=== PATIENT | male | born 1945 | race Caucasian/White ===

== ENCOUNTER 2021-03-06 14:03 | Inpatient (IN) | payer MEDICARE, BC, SELFPAY ==
[2021-03-06 14:35] VITALS: BP 143/78; PULSE 89; RESP 20; TEMP 36.8; O2SAT 97; BMI 34.4
--- NOTE | 2021-03-06 16:11 | CASEMGMT ---
Addendum entered by Allyson Solo 03/06/21 16:20: SW did also review visiting hours w/pt and family as pt wanted to stay. SW explained that this is not possible at this time. KIRIT Zambrano Original Note: Social Work Family here asking to speak to SW. SW spoke w/ and daughters in waiting area. Daughter Kassandra Romero ([phone]) states a nurse told pt to not get up and pt became upset at this. Daughter states pt wants to leave and she asked if pt can leave. Pt has a feeding tube at present as per family, having swallowing issues. He also had a cervical surgery and is having arm pain. SW explained that if pt were to leave we will not be able to set up any kind of home health, and it does not sound like pt would be able to manage at home, both with feeding or ambulation. They also have no supplies for home. states they thought pt was getting transferred to another hospital, not a rehab. SW clarified the different levels of care. They asked if pt could go to the ER to be admitted to the hospital. SW explained pt just left [facility] so they must have felt pt was stable enough to leave the hospital, and may not need to go right back into the hospital. SW encouraged family to encourage pt to stay, so he can get the needed therapies to get stronger. As per daughter pt needs a swallow evaluation too. SW again reiterated if pt goes home he may have a difficult time, and there is no home therapy or supplies for the feeding tube set up, SW asked how this would be managed. Daughter states pt would likely just eat. SW reminded them he is not able to eat as he needs the swallow evaluation, if he eats this may have a negative impact on pt. Family states understanding. SW encouraged family to encourage pt to stay. SW spoke w/physician, she will see pt today. SW let pt and family know. Pt at this time appears calm in bed and is not asking to leave. SW will follow up with a full assessment on Tuesday. KIRIT Zambrano
--- NOTE | 2021-03-06 16:51 | NURSING ---
This nurse walked into room to find pt's transferring reeducated pt and that only staff can transfer pt d/u pt's safety. verbalized understanding.
--- NOTE | 2021-03-06 16:52 | HP.PCM_ITS ---
HPI - General General Date of Admission: 03/06/21 Chief Complaint: Flu-like symptoms, r/o COVID-19 HPI Narrative MITCHELL MOSS, is a 76 YO M with a PMH of CAD, PCI with 3 stents present, ischemic CM (recent TTE showed a 65 % EF), HLD, obesity, gout, HTN and OA who fell on 02/24/21 in his garage and he struck his chin on a toolbox. Injuries sustained include a C7 superior endplate fracture, right C7 laminar fracture, C6-C7 vertebral widening, left vertebral artery occlusion and a deep complex submandibular laceration. He also lost teeth and has dental instability. He underwent emergency surgery on 02/25/21 for anterior cervical C6/7 partial corpectomy, arthrodesis, cadaveric fibular strut graft, posterior cervical C5, 6, T1, T2 instrumentation with posterolateral arthrodesis and reduction of fracture. The dentist recommended extraction of #7 and #8 teeth as an OP. Post operatively he had pharyngeal dysphagia and was made NPO. a MBS showed aspi ration of thin and and nectar consistencies. There was laryngeal penetration with pur?e and honey consistency. A Dobhoff feeding tube was inserted. He was evaluated by PT/OT/ST and transfer to acute rehab was recommended. He was admitted to the acute inpt rehab unit at [facility] on 03/06/21 for 3 hours of therapy daily to restore function/independence at or near his prior level of function. [facility] Medical History (Updated 03/09/21 @ 19:[address] Anitra Harden DO) CAD (coronary artery disease) Gout Hyperlipemia Ischemic cardiomyopathy Home Medications acetaminophen 650 mg PO Q4H PRN 03/06/21 [History Last Taken Unknown] allopurinol 400 mg FEEDING TUBE DAILY 03/06/21 [History Last Taken Unknown] amlodipine 10 mg FEEDING TUBE DAILY 03/06/21 [History Last Taken Unknown] aspirin 81 mg FEEDING TUBE DAILY 03/06/21 [History Last Taken Unknown] cetirizine 10 mg FEEDING TUBE DAILY 03/06/21 [History Last Taken Unknown] cyanocobalamin (vitamin B-12) 1,000 mcg SUBCUT QMONTH 03/06/21 [History Last Taken 02/22/21 08:00] fluvastatin 40 mg FEEDING TUBE DAILY 03/06/21 [History Last Taken Unknown] lactulose 30 ml FEEDING TUBE QHS 03/06/21 [History Last Taken Unknown] melatonin 5 mg FEEDING TUBE QHS 03/06/21 [History Last Taken Unknown] methocarbamol 500 mg FEEDING TUBE Q6H 03/06/21 [History Last Taken Unknown] metoprolol succinate 25 mg PO DAILY 03/06/21 [History Last Taken Unknown] metoprolol tartrate 12.5 mg FEEDING TUBE BID 03/06/21 [History Last Taken Unknown] nitroglycerin 0.4 mg SUBLINGUAL Q5M PRN 03/06/21 [History Last Taken Unknown] oxycodone 5 mg PO Q4H PRN 03/06/21 [History Last Taken Unknown] polyethylene glycol 3350 17 g FEEDING TUBE DAILY 03/06/21 [History Last Taken Unknown] sennosides [senna] 5 ml FEEDING TUBE BID 03/06/21 [History Last Taken Unknown] Allergy/AdvReac Type Severity Reaction Status Date / Time lisinopril Allergy PT UNSURE Verified 03/06/21 15:08 OF REACTION atorvastatin AdvReac Intermediate muscle pain Verified 03/06/21 17:30 Surgical History (Updated 03/09/21 @ 19:[address] Anitra Harden DO) Cervical vertebral fusion Social History household members: spouse housing: house Smoking Status: Never smoker ROS Review of Systems ROS Unobtainable: other Details: He is forgetful but able to answer questions and his family is here to help ; Denies due to encephalopathy, due to endotrache al tube, due to mental condition or due to mental status Constitutional Constitutional: Reports weakness; Denies anorexia, change in weight, chills, fatigue, fever(s) or night sweats Eyes Eyes: Denies blurry vision, change in vision, eye pain or loss of vision ENT HEENT: Reports nasal congestion, neck pain, post nasal drip, sore throat and other Details: he has a dobhoff feeding tube in his nose ; Denies abnormal hearing, dysphagia, headache(s) or hearing loss Cardiovascular Cardiovascular: Denies chest pain, dyspnea on exertion, edema, lightheadedness, orthopnea, palpitations, paroxysmal nocturnal dyspnea or syncope Respiratory/Chest Respiratory/Chest: Reports cough and other Details: the cough is more like clearing his throat - the feeding tube is irritating the throat and making him cough and sneeze ; Denies dyspnea, shortness of breath at rest, shortness of breath with exertion or wheezing Gastrointestinal Gastrointestinal: Denies abdominal pain, constipation, diarrhea, dyspepsia, hematemesis, hematochezia, nausea or vomiting Genitourinary Genitourinary: Denies dysuria, hematuria, nocturia, urinary frequency, urinary hesitancy, urinary incontinence or urinary urgency Musculoskeletal Musculoskeletal: Reports back pain, neck pain and other Details: He is having pain in the R arm...at the shoulder and the elbow. Integumentary Integumentary: Reports dry skin Neurologic Neurologic: Reports confusion; Denies dizziness, focal weakness, headache(s), paresthesias, seizures or tremor(s) Psychiatric Psychiatric: Denies anxiety, depression, homicidal ideation or suicidal ideation Endocrine Endocrinology: Denies change in body appearance, polydipsia or polyuria Hematologic/Lymphatic Hematologic/Lymphatic: Denies easy bleeding, easy bruising or lymphadenopathy Allergic/Immunologic Allergic/Immunologic: Denies rhinitis, eczemia or asthma Vital Signs Vital Signs Vital Signs: 03/06/21 14:35 Temperature 98.2 F Temperature Source Oral Pulse Rate 89 Respiratory Rate 20 H Blood Pressure 143/78 H Blood Pressure Mean 99 Blood Pressure Source Monitor Blood Pressure Position Semi-Fowlers Blood Pressure Location Left Arm Pulse Ox 97 Oxygen Delivery Method Room Air Weight Weight: 254 lb 6.615 oz Body Mass Index (BMI) 34.4 Physical Exam Const alert Constitutional Narrative: He can tell me his name but the the year or the place. General Appearance: cooperative, well developed and other has a Dobhoff feeding tube in his nose Orientation / Consciousness: awake, oriented to person and confused Nutritional Appearance: obese HEENT HEENT Narrative: He has a large laceration of the chin which has been closed with suture. He has a incision in the anterior neck due to cervical spine surgery. There is ecchymosis of the chin and the anterior neck. He also is missing teeth and has a few loose teeth. Nose: nasal discharge mucoid Mouth: dry mucous membranes, mouth trauma and thrush Eyes PERRL, EOMs intact bilaterally, conjunctivae normal and no scleral icterus Neck Neck Narrative: He has a R carotid bruit. Resp normal respiratory effort and no use of accessory muscles Resp Narrative: diminished but CTA. Symmetrical chest movement. No conversational dyspnea. Effort and Inspection: able to speak in complete sentences Cardio regular rate, regular rhythm, S1 normal heart sound, S2 normal heart sound, no murmurs, no rub and no gallops Cardio Narrative: occasional premature beat GI soft to palpation, non-tender and non-distended GI Narrative: Normal bowel sounds, no guarding with palpation Back/Spine normal to inspection Extremity no clubbing, cyanosis or edema Extremity Narrative: Pedal pulses are 2-3/3 bilaterally. He has pain in the RUE with palpation of the biceps tendo at the shoulder......also some pain at the elbow with biceps contraction. No erythema and no increased warmth to touch. No olecranon bursa swelling or fluid Peripheral Pulses: Yes radial pulses present Skin no jaundice Skin Narrative: He has an abrasion of the Left knee with a thick eschar covering it. there is no gely-wound erythema and no increased warmth to touch. General Skin Exam: petechiae Neuro CN's II-XII intact bilaterally, moves all extremities, no focal motor deficits and no sensory deficits noted Neuro Narrative: he is a little confused but pleasant and cooperative. I think the confusion is medication induced. Meningeal Signs: no meningeal signs Psych thought process normal, cooperative, affect normal, denies homicidal ideation and denies suicidal ideation Appearance: grossly normal and appropriate Activity / Motor Behavior: appropriate eye contact; Negative for psychomotor agitation Results Lab / Micro Data Result Diagrams: 03/07/21 07:35 03/07/21 07:35 Assessment & Plan Assessment/Plan (1) Debility: (2) Fall: QUALIFIERS: Encounter type: subsequent encounter Qualified Code(s): W19.XXXD - Unspecified fall, subsequent encounter (3) Cervical vertebral fracture: (4) Cervical vertebral fusion: (5) Laceration: (6) Oropharyngeal dysphagia: (7) Uses feeding tube: (8) Abnormal LFTs: (9) Cognitive dysfunction: (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: (11) Macrocytic anemia: (12) Biceps tendonitis on right: (13) History of PTCA: (14) Obesity: QUALIFIERS: Obesity type: due to excess calories Obesity classification: adult class 1 (BMI 30 - 34.9) Serious obesity comorbidity presence: with serious comorbidity Body mass index: BMI 34.0-34.9 Qualified Code(s): E66.09 - Other obesity due to excess calories; Z68.34 - Body mass index [BMI] 34.0-34.9, adult (15) Ischemic cardiomyopathy: (16) Hyperlipemia: (17) Gout: (18) CAD (coronary artery disease): (19) Right carotid bruit: PLAN: PLAN PT for gait stability OT for ADL's ST for evaluation Analgesics as needed Bowel protocol Fall precautions Assess for Anxiety/Depression GI prophylaxis not necessary at this time DVT prophylaxis with DARRYL ulloa and SCDs until okay with neurosurgery to start pharmacologic DVT prophylaxis Follow up with neurosurgery, dentist, PCP following DC from IP Rehab AM lab including CMP, CBC, Mag and Phos NPO for now. will need another MBS when the swelling has had a chance to decrease. Charges/Coding Visit Charges Inpatient E&M: 72487 Init Hosp L3
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
[2021-03-06] MEDS: Methocarbamol 500 MG Tablet NG ×2 (17:28→23:56)
[2021-03-06 18:58] VITALS: O2SAT 95
[2021-03-06 19:26] VITALS: BP 139/81; PULSE 86; RESP 18; TEMP 36.6; O2SAT 98
[2021-03-06] MEDS: Pivot 1.5 Cal 1,000 ML 45 ML GT (20:01)
[2021-03-06] MEDS: Oxymetazoline 0.05% 1 SPRAY SPRAY.BTL NASAL (20:04)
[2021-03-06] MEDS: Arthritis Pain Compound 60 CLICK TUBE TOPICAL (20:04)
[2021-03-06] MEDS: Clotrimazole 10 MG Troche MUCOUS MEM (20:07)
[2021-03-06] MEDS: MELATONIN 3 MG TABLET NG (20:09)
[2021-03-06 20:12] VITALS: BP 139/81; PULSE 86
[2021-03-06] MEDS: Metoprolol Tartrate 25 MG Tablet 12.5 MG NG (20:12)
[2021-03-06] MEDS: Acetaminophen 650 MG/20 ML UDC 1000 MG NG (20:16)
[2021-03-06] MEDS: oxyCODONE 5 MG Tablet NG (20:56)
[2021-03-06] MEDS: Senna Tablet 1 TABLET NG (20:57)
[2021-03-07] VITALS (7 sets, daily range): BP systolic 130–137; BP diastolic 56–61; PULSE 70–81; RESP 18–20; TEMP 36.8–37; O2SAT 96
[2021-03-07] MEDS: oxyCODONE 5 MG Tablet NG ×4 (01:56→21:16)
[2021-03-07] MEDS: Arthritis Pain Compound 60 CLICK TUBE TOPICAL ×3 (06:47→21:16)
[2021-03-07] MEDS: Methocarbamol 500 MG Tablet NG ×3 (06:48→21:14)
[2021-03-07] MEDS: Acetaminophen 650 MG/20 ML UDC 1000 MG NG ×3 (06:48→21:14)
[2021-03-07] MEDS: Clotrimazole 10 MG Troche MUCOUS MEM ×2 (06:48→12:03)
[2021-03-07] MEDS: Allopurinol 100 MG Tablet 400 MG NG (07:48)
[2021-03-07] MEDS: Aspirin 81 MG TAB.CHEW NG (07:49)
[2021-03-07] MEDS: amLODIPine 10 MG Tablet NG (07:49)
[2021-03-07] MEDS: Metoprolol Tartrate 25 MG Tablet 12.5 MG NG ×2 (07:49→21:15)
[2021-03-07] MEDS: Senna Tablet 1 TABLET NG (07:49)
[2021-03-07] MEDS: Oxymetazoline 0.05% 1 SPRAY SPRAY.BTL NASAL ×2 (07:58→21:16)
[2021-03-07 08:28] LABS: Absolute Lymphocyte Count 1.66 X10^3/uL (0.83-4.51); Absolute Neutrophil Count 5.6 X10^3/uL (2.0-7.7); Basophil# 0.03 X10^3/uL; Basophil% 0.4 % (0-1); Eosinophil# 0.11 X10^3/uL; Eosinophils% 1.4 % (0-5); Hematocrit 26.6 % (40-54); Hemoglobin 8.4 g/dL (13.0-16.5); Lymphocyte # 1.66 X10^3/ul (0.83-4.51); Lymphocyte % 20.6 % (19-41); Mean Corp Hgb Conc 31.6 g/dL (32-36); Mean Corpuscular Hgb 32.3 pg (27.0-32.0); Mean Corpuscular Volume 102.3 fL (80-94); Mean Platelet Vol. 9.6 fl (6.2-12.0); Monocyte% 7.4 % (0-10); NRBC Flagged by Analyzer 0.2 % (0-5); Neutrophil # 5.59 X10^3/uL (2.7-7.7); Neutrophil % 69.2 % (47-70); Platelet Count 254 K/mm3 (150-450); RBC Distribution Width SD 50.4 fl (35.1-43.9); White Blood Count 8.1 K/mm3 (4.4-11.0)
[2021-03-07 08:55] LABS: ALB/GLOB Ratio 0.8 RATIO (0.9-2.4); AST(SGOT) 61 U/L (15-37); Alanine Aminotransfer ALT/SGPT 101 U/L (16-61); Albumin, Serum 2.8 g/dL (3.2-5.0); Alkaline Phosphatase 102 U/L (45-117); Anion Gap 6 (5-15); BUN 25 mg/dL (7-18); BUN/Creat Ratio 32.3 RATIO (10-20); Calcium,Total 8.3 mg/dL (8.5-10.1); Chloride 106 mmol/L (98-107); Creatinine, Serum 0.77 mg/dL (0.70-1.30); EST Glomerular Filtration Rate 103 mL/min (>60); Est Glom Filt Rate - Afr Amer 125 mL/min (>60); Estimated Creatinine Clearance 66.82 ml/min; Globulin 3.5 g/dL (2.2-4.2); Glucose 137 mg/dL (74-106); Magnesium 2.3 mg/dL (1.6-2.6); Potassium 3.8 mmol/L (3.5-5.1); Protein, Total 6.3 g/dL (6.4-8.2); Sodium Level 136 mmol/L (136-145); Uric Acid 4.6 mg/dL (3.5-7.2)
[2021-03-07] MEDS: Pivot 1.5 Cal 1,000 ML 55 ML GT (13:46)
[2021-03-07] MEDS: QUEtiapine 25 MG Tablet PO (17:44)
[2021-03-07] MEDS: MELATONIN 3 MG TABLET NG (21:14)
[2021-03-08] MEDS: oxyCODONE 5 MG Tablet NG ×4 (04:25→21:42)
[2021-03-08] MEDS: Arthritis Pain Compound 60 CLICK TUBE TOPICAL ×3 (05:49→21:35)
[2021-03-08] MEDS: Acetaminophen 650 MG/20 ML UDC 1000 MG NG ×3 (05:49→21:41)
[2021-03-08] MEDS: Methocarbamol 500 MG Tablet NG ×3 (05:49→21:40)
[2021-03-08 08:22] VITALS: BP 133/62; PULSE 78; RESP 18; TEMP 36.7; O2SAT 95
[2021-03-08] MEDS: Polyethylene Glycol 3350 17 GM PACKET NG (08:43)
[2021-03-08] MEDS: amLODIPine 10 MG Tablet NG (08:44)
[2021-03-08] MEDS: Allopurinol 100 MG Tablet 400 MG NG (08:44)
[2021-03-08 08:45] VITALS: PULSE 77
[2021-03-08] MEDS: Oxymetazoline 0.05% 1 SPRAY SPRAY.BTL NASAL ×2 (08:45→21:34)
[2021-03-08] MEDS: Metoprolol Tartrate 25 MG Tablet 12.5 MG NG ×2 (08:45→21:39)
[2021-03-08] MEDS: Aspirin 81 MG TAB.CHEW NG (08:45)
[2021-03-08] MEDS: Senna Tablet 1 TABLET NG ×2 (08:56→21:40)
[2021-03-08] MEDS: Pivot 1.5 Cal 1,000 ML 55 ML GT (08:56)
[2021-03-08] MEDS: Clotrimazole 10 MG Troche MUCOUS MEM (13:22)
[2021-03-08] MEDS: QUEtiapine 25 MG Tablet PO (17:37)
[2021-03-08 19:38] VITALS: BP 114/77; PULSE 78; RESP 16; TEMP 36.6; O2SAT 100
[2021-03-08] MEDS: NYSTATIN 500,000 UNIT/5 ML UDC 500000 UNIT PO ×2 (19:52→21:40)
[2021-03-08 21:39] VITALS: BP 119/77; PULSE 78
[2021-03-08] MEDS: MELATONIN 3 MG TABLET NG (21:40)
[2021-03-09] MEDS: oxyCODONE 5 MG Tablet NG ×4 (01:33→21:29)
[2021-03-09] MEDS: Acetaminophen 650 MG/20 ML UDC 1000 MG NG ×3 (05:30→21:30)
[2021-03-09] MEDS: Arthritis Pain Compound 60 CLICK TUBE TOPICAL ×3 (05:31→21:23)
[2021-03-09] MEDS: Methocarbamol 500 MG Tablet NG ×3 (05:32→21:25)
[2021-03-09 08:38] VITALS: BP 139/61; PULSE 82; RESP 20; TEMP 36.8; O2SAT 96
--- NOTE | 2021-03-09 08:49 | PCM.PN.BLA ---
Progress Note Afebrile VSS-blood pressure is adequately controlled. Maintaining appropriate oxygen saturation on RA Fluid balance yesterday was +195 cc. Last bowel movement was Tuesday - He is still NPO. Will discuss plans for MBS with ST Discussed with nursing - no problems that need addressed. He is sleeping better at night with the addition of Seroquel to his drug regimen. He . Reviewed the PT/OT/ST notes - not yet ready for an MBS. Will continue with feeding tube. Medication list reviewed. He has pain in both shoulders. The arthritic cream and ice help. I suspect he has significant OA in the shoulders. Denies chest pain, shortness of breath, nausea, abdominal pain, lightheadedness. Physical Exam Const alert Constitutional Narrative: He can tell me his name but not the the year or the place. also can not tell me why he is here. General Appearance: cooperative and well developed Orientation / Consciousness: awake, oriented to person and confused Nutritional Appearance: obese Eyes PERRL, conjunctivae normal and no scleral icterus Neck Neck Narrative: He has a R carotid bruit. Resp normal respiratory effort and no use of accessory muscles Resp Narrative: diminished but CTA. Symmetrical chest movement. No conversational dyspnea. Effort and Inspection: able to speak in complete sentences Cardio regular rate, regular rhythm, S1 normal heart sound, S2 normal heart sound, no murmurs, no rub and no gallops Cardio Narrative: occasional premature beat GI soft to palpation, non-tender and non-distended GI Narrative: Normal bowel sounds, no guarding with palpation Back/Spine normal to inspection Extremity no clubbing, cyanosis or edema Skin no jaundice Skin Narrative: He has an abrasion of the Left knee with a thick eschar covering it. there is no gely-wound erythema and no increased warmth to touch. General Skin Exam: petechiae Rashes: no rashes Neuro CN's II-XII intact bilaterally, moves all extremities, no focal motor deficits and no sensory deficits noted Neuro Narrative: he is a little confused but pleasant and cooperative. I think the confusion is medication induced. Nursing reports that he also hallucinates and has poor safety awareness and also that he is impulsive Meningeal Signs: no meningeal signs Psych cooperative, affect normal, denies homicidal ideation and denies suicidal ideation Appearance: grossly normal and appropriate Activity / Motor Behavior: appropriate eye contact; Negative for psychomotor agitation Assessment & Plan Assessment/Plan (1) Debility: (2) Fall: QUALIFIERS: Encounter type: subsequent encounter Qualified Code(s): W19.XXXD - Unspecified fall, subsequent encounter (3) Cervical vertebral fusion: (4) Laceration: (5) Cognitive dysfunction: (6) SunDown syndrome: (7) Abnormal LFTs: (8) Biceps tendonitis on right: (9) Macrocytic anemia: (10) Ischemic cardiomyopathy: (11) Hyperlipemia: (12) CAD (coronary artery disease): (13) Gout: (14) Uses feeding tube: (15) Obesity: QUALIFIERS: Obesity classification: adult class 1 (BMI 30 - 34.9) Obesity type: due to excess calories Serious obesity comorbidity presence: with serious comorbidity Body mass index: BMI 34.0-34.9 Qualified Code(s): E66.09 - Other obesity due to excess calories; Z68.34 - Body mass index [BMI] 34.0-34.9, adult (16) Oropharyngeal dysphagia: PLAN: 1. continue therapy 2. Continue the arthritic cream to the shoulders 3. Continue the Seroquel for sundowning 4. Probable MBS the end of the week. Swelling must decrease further before the MBS is attempted. 5. continue the Dobhoff feedings. Visit Charges Inpatient E&M: 60113 Subs Hosp L2
[2021-03-09 09:16] VITALS: BP 139/61; PULSE 82
[2021-03-09] MEDS: Senna Tablet 1 TABLET NG ×2 (09:16→21:25)
[2021-03-09] MEDS: Polyethylene Glycol 3350 17 GM PACKET NG (09:16)
[2021-03-09] MEDS: NYSTATIN 500,000 UNIT/5 ML UDC 500000 UNIT PO ×4 (09:16→21:25)
[2021-03-09] MEDS: amLODIPine 10 MG Tablet NG (09:16)
[2021-03-09] MEDS: Allopurinol 100 MG Tablet 400 MG NG (09:16)
[2021-03-09] MEDS: Metoprolol Tartrate 25 MG Tablet 12.5 MG NG ×2 (09:16→21:25)
[2021-03-09] MEDS: Aspirin 81 MG TAB.CHEW NG (09:16)
[2021-03-09] MEDS: Oxymetazoline 0.05% 1 SPRAY SPRAY.BTL NASAL ×2 (09:17→21:23)
[2021-03-09] MEDS: Pivot 1.5 Cal 1,000 ML 55 ML GT (13:27)
[2021-03-09] MEDS: QUEtiapine 25 MG Tablet PO (17:36)
[2021-03-09 19:24] VITALS: BP 153/67; PULSE 87; RESP 18; TEMP 37; O2SAT 96
[2021-03-09] MEDS: Lactulose 20 GM/30 ML UDC NG (21:24)
[2021-03-09 21:25] VITALS: PULSE 85
[2021-03-09] MEDS: MELATONIN 3 MG TABLET NG (21:25)
[2021-03-09 22:00] VITALS: PULSE 85; RESP 16; O2SAT 96
[2021-03-10] MEDS: Arthritis Pain Compound 60 CLICK TUBE TOPICAL ×3 (05:38→22:01)
[2021-03-10] MEDS: Methocarbamol 500 MG Tablet NG ×3 (05:38→21:54)
[2021-03-10] MEDS: Acetaminophen 650 MG/20 ML UDC 1000 MG NG ×2 (05:39→21:59)
[2021-03-10] MEDS: oxyCODONE 5 MG Tablet NG ×4 (05:40→22:03)
[2021-03-10] MEDS: Pivot 1.5 Cal 1,000 ML 55 ML GT (06:30)
[2021-03-10 07:30] VITALS: BP 136/52; PULSE 86; RESP 18; TEMP 36.7; O2SAT 95
[2021-03-10 10:59] VITALS: BP 136/52; PULSE 86
[2021-03-10] MEDS: Allopurinol 100 MG Tablet 400 MG NG (10:59)
[2021-03-10] MEDS: amLODIPine 10 MG Tablet NG (10:59)
[2021-03-10] MEDS: Aspirin 81 MG TAB.CHEW NG (10:59)
[2021-03-10] MEDS: NYSTATIN 500,000 UNIT/5 ML UDC 500000 UNIT PO ×4 (10:59→22:00)
[2021-03-10] MEDS: Metoprolol Tartrate 25 MG Tablet 12.5 MG NG ×2 (10:59→22:02)
[2021-03-10] MEDS: Oxymetazoline 0.05% 1 SPRAY SPRAY.BTL NASAL ×2 (11:12→22:01)
[2021-03-10] MEDS: QUEtiapine 25 MG Tablet PO (17:42)
[2021-03-10 18:55] VITALS: BP 112/50; PULSE 82; RESP 18; TEMP 36.7; O2SAT 97
[2021-03-10 22:00] VITALS: PULSE 82; RESP 16; O2SAT 96
[2021-03-10] MEDS: Senna Tablet 1 TABLET NG (22:00)
[2021-03-10] MEDS: MELATONIN 3 MG TABLET NG (22:00)
[2021-03-10] MEDS: Lactulose 20 GM/30 ML UDC NG (22:01)
[2021-03-10 22:02] VITALS: PULSE 86
[2021-03-11] MEDS: Pivot 1.5 Cal 1,000 ML 55 ML GT ×2 (00:31→22:29)
[2021-03-11] MEDS: oxyCODONE 5 MG Tablet NG ×2 (05:40→10:08)
[2021-03-11] MEDS: Acetaminophen 650 MG/20 ML UDC 1000 MG NG ×3 (05:41→22:09)
[2021-03-11] MEDS: Methocarbamol 500 MG Tablet NG ×3 (05:41→22:12)
[2021-03-11] MEDS: Arthritis Pain Compound 60 CLICK TUBE TOPICAL ×3 (05:42→22:09)
[2021-03-11 07:42] VITALS: BP 159/86; PULSE 82; RESP 16; TEMP 37.4; O2SAT 94
[2021-03-11] MEDS: Oxymetazoline 0.05% 1 SPRAY SPRAY.BTL NASAL ×2 (10:06→22:08)
[2021-03-11] MEDS: Aspirin 81 MG TAB.CHEW NG (10:06)
[2021-03-11 10:07] VITALS: PULSE 82
[2021-03-11] MEDS: Allopurinol 100 MG Tablet 400 MG NG (10:07)
[2021-03-11] MEDS: amLODIPine 10 MG Tablet NG (10:07)
[2021-03-11] MEDS: Metoprolol Tartrate 25 MG Tablet 12.5 MG NG ×2 (10:07→22:12)
[2021-03-11] MEDS: NYSTATIN 500,000 UNIT/5 ML UDC 500000 UNIT PO ×3 (10:07→20:32)
--- NOTE | 2021-03-11 10:07 | PCM.PN.BLA ---
Progress Note Avinash was seen on team rounds today. His daughter Kassandra was present in the room for rounds. Afebrile VSS Maintaining appropriate oxygen saturation on RA Remains NPO with a corpak Discussed with nursing - Both therapy and nursing report he is having severe shoulder pain. Reviewed the PT/OT/ST notes Medication list reviewed. He is having a lot of pain in the posterior neck and shoulders when sitting up for a prolonged period of time and when doing PT. He has trapezius spasm BL and the pain is radiating down the R arm. He describes the pain in the R arm as aching. He denies CP, SOB, N/V, abd pain, lightheadedness. Physical Exam Const alert and oriented x3 Constitutional Narrative: He appears to be is significant pain and is uncomfortable. General Appearance: cooperative Resp clear to auscultation bilaterally Cardio regular rate, regular rhythm and no gallops GI soft to palpation, non-tender and non-distended GI Narrative: normal bowel sounds Extremity no calf tenderness and no pedal edema Skin General Skin Exam: no breakdown Rashes: no rashes Assessment & Plan Assessment/Plan (1) Cervical vertebral fracture: (2) Oropharyngeal dysphagia: (3) Debility: (4) Cervical vertebral fusion: (5) Biceps tendonitis on right: PLAN: Increase the Muscle relaxer to 4 X's a day. Add Fentanyl 12 mcg patch for continuous pain relief and keep the Oxycodone for breakthrough pain. Soft collar when he is out of bed to support the neck/head. re-evaluate in the AM for pain control MBS scheduled for tomorrow.
[2021-03-11 19:53] VITALS: BP 112/45; PULSE 79; RESP 18; TEMP 36.9; O2SAT 95
[2021-03-11] MEDS: QUEtiapine 25 MG Tablet PO (20:33)
[2021-03-11] MEDS: Lactulose 20 GM/30 ML UDC NG (22:11)
[2021-03-11 22:12] VITALS: BP 112/45; PULSE 79
[2021-03-11] MEDS: MELATONIN 3 MG TABLET NG (22:12)
[2021-03-12] MEDS: Acetaminophen 650 MG/20 ML UDC 1000 MG NG ×2 (05:05→23:56)
[2021-03-12] MEDS: Arthritis Pain Compound 60 CLICK TUBE TOPICAL ×3 (05:06→23:59)
[2021-03-12 07:25] VITALS: BP 104/46; PULSE 78; RESP 18; TEMP 37.4; O2SAT 99
[2021-03-12] MEDS: Oxymetazoline 0.05% 1 SPRAY SPRAY.BTL NASAL ×2 (10:14→23:59)
[2021-03-12 10:16] VITALS: PULSE 78
[2021-03-12] MEDS: Aspirin 81 MG TAB.CHEW NG (10:16)
[2021-03-12] MEDS: Metoprolol Tartrate 25 MG Tablet 12.5 MG NG ×2 (10:16→23:58)
[2021-03-12] MEDS: Methocarbamol 500 MG Tablet NG ×3 (10:17→23:58)
[2021-03-12] MEDS: Allopurinol 100 MG Tablet 400 MG NG (10:17)
[2021-03-12] MEDS: NYSTATIN 500,000 UNIT/5 ML UDC 500000 UNIT PO ×3 (10:17→23:58)
[2021-03-12] MEDS: amLODIPine 10 MG Tablet NG (10:17)
[2021-03-12] MEDS: oxyCODONE 5 MG Tablet NG (10:22)
--- NOTE | 2021-03-12 14:13 | CASEMGMT ---
Social Work Team meeting held today with pt and pt dgt Nicole present. Pt is receiving PT/OT/ST and progressing with therapy. MBS scheduled for later today and pt hopeful that tube feeding will then be stopped. Pt will need to remain in RU for continued therapy even after d/c of artificial nutrition. Pt lives at home with his and plans to return home at time of discharge. Pt with a recent fall and scheduled for surgery tomorrow. Pt dgt assuring pt that children are caring for pt . Pt is here under Medicare benefit and SW explained medicare has approved 28 days with discharge date of 04/03. Will continue with treatment plan on Rehab unit and reteam next week. PRASANNA Grey
--- NOTE | 2021-03-12 16:16 | SP.MBSS_ITS ---
Modified Barium Swallow - Patient Information Study Date: 03/12/21 Study Time: 14:30 Direct Billable Minutes: 150 Total Minutes procedure & reportin Diagnosis: oropharyngeal dysphagia Referring Physician: Anitra Harden Reason for Referral: Objective reassessment of swallow function under fluoroscopy prior to diet advancement recommended following MBSS 03/02/21 Medical History: Patient is a 76 YO male w/ a past medical history significant for CAD, PCI with 3 stents present, ischemic CM (recent TTE showed a 65 % EF), HLD, obesity, gout, HTN and OA who fell on 02/24/21 in his garage and he struck his chin on a toolbox. Injuries sustained include a C7 superior endplate fracture, right C7 laminar fracture, C6-C7 vertebral widening, left vertebral artery occlusion and a deep complex submandibular laceration. He also lost teeth and has dental instability. He underwent emergency surgery on 02/25/21 for anterior cervical C6/7 partial corpectomy, arthrodesis, cadaveric fibular strut graft, posterior cervical C5, 6, T1, T2 instrumentation with posterolateral arthrodesis and reduction of fracture. The dentist recommended extraction of #7 and #8 teeth as an OP. Post operatively he had pharyngeal dysphagia, underwent a MBSS, was subsequently made NPO and a Dobhoff feeding tube was inserted. Current Diet Ordered: NPO w/ dobhoff feeding tube Dentition: Natural Teeth, Missing Teeth Mental Status: WNL Comment: Previous Modified Barium Swallow Studies: MBSS on 03/02/21 at [facility] -Moderate pharyngeal dysphagia secondary to Anterior cervical C6/7 partial corpectomy, arthrodesis, cadaveric fibular strut graft - findings were as follows: Pt. demonstrate adequate oral phase swallow Pt. moderate pharyngeal dysphagia exhibited by delayed initiation of pharyngeal swallow, decrease laryngeal elevation/anterior shift with limited epiglottic inversion further impacted by prevertebral edema. Penetration of thin liquids to TVF prior to initiation of pharyngeal swallow, however on repeat swallow SILENT aspiration to the inferior aspect of the TVF due to spillage over the interarytenoids. Mildly thick liquids resulted in deep penetration to the level of the TVF with post swallow residue within the valleculae and piriform space. Again spillage over the interarytenoids occurred which resulted in aspiration. Increase residue with moderately thick liquids with eventual silent penetration. Pt. cued to cough and cleared both aspiration and penetration of all liquids. Increased residue with puree, pt. utilized multiple swallows to aid in clearance, however post swallow residue remained within the valleculae and piriform space. This again flowed over the interarytenoid space into the laryngeal vestibule. Pt. at high risk for aspiration at this time mainly due to prevertebral edema, therefore NPO with limited ice chips was recommended. good, to achieve stated therapy goals. - Penetration-Aspiration Scale Penetration-Aspiration Scale: OBJECTIVE ASSESSMENT OF SWALLOW FUNCTION (QUANTITATIVE ? PER TRIAL): PENETRATION / ASPIRATION SCALE (WILLIAM): 1 = does not enter airway 2 = enters airway/above vocal folds/ejected 3 = enters airway/above vocal folds/not ejected 4 = enters airway/contacts vocal folds/ejected 5 = enters airway/contacts vocal folds/not ejected 6 = enters airway/below vocal folds/ejected 7 = enters airway/below vocal folds/not ejected despite effort 8 = enters airway/below vocal folds/no effort - Penetration-Aspiration Scale Score Thin Liquid via teaspoon Result: 8= enters airway/below vocal folds/no effort Thin Liquid via teaspoon Trial 2 Result: 3= enters airways/above vocal folds/not ejected [place] Thick Liquid via teaspoon Result: 1= does not enter airway - Pharyngeal residue from the initial bolus w/ additional swallow: 3= enters airway/above vocal folds/not ejected [place] Thick Liquid via teaspoon Trial 2 Result: 1= does not enter airway [place] Thick Liquid via small single sip from cup Result: 5= enters airways/contacts vocal folds/not ejected [place] Thick Liquid via teaspoon Trial 3 Result: 5= enters airways/contacts vocal folds/not ejected Honey Thick Liquid via teaspoon Result: 1= does not enter airway Honey Thick Liquid via teaspoon Trial 2 Result: 1= does not enter airway - Pharyngeal residue from the initial bolus w/ additional swallow: 3= enters airway/above vocal folds/not ejected Honey Thick Liquid via teaspoon Trial 3 Result: 1= does not enter airway - Pharyngeal residue from the initial bolus w/ additional swallow: 2= enters airway/above vocal folds/ejected Pudding via teaspoon Result: 1= does not enter airway [place] Thick Liquid via teaspoon Trial 4 Result: 5= enters airways/contacts vocal folds/not ejected Honey Thick Liquid via teaspoon Trial 4 Result: 1= does not enter airway - Oral Phase Labial Seal: No Labial Escape Tongue Control During Bolus Hold: Cohesive bolus between tongue to palatal seal Bolus Preparation/Mastication: Timely and efficient chewing and mashing Bolus Transport/Lingual Motion: Repetitive/disorganized tongue motion Oral Residue: Trace residue lining oral structures - Pharyngeal Phase Initiation of Pharyngeal Swallow: Bolus head in valleculae Soft Palate Elevation: No bolus between soft palate and pharyngeal wall Laryngeal Elevation: Min superior movement thyroid cart/min apprx aryte cart- epig petiole Anterior Hyoid Excursion: Partial anterior movement Epiglottic Movement: Partial inversion Laryngeal Vestibule Closure at Height of Swallow: Incomplete; narrow column of air/contrast in laryngeal vestibule Pharyngeal Stripping Wave: Absent Pharyngoesophageal Segment Opening: Parital distension and partial duration; parital obstruction of flow Tongue Base Retraction: Narrow column of contrast between tongue base & post. pharyngeal wall Pharyngeal Residue: Majority of contrast within or on pharyngeal structures - Esophageal Phase Esophageal Clearance: Esophageal retention - Treatment Strategies Effects of treatment strategies attemped:: Multiple Swallows = somewhat effective Effortful Swallow = somewhat effective - Diagnosis/Impression Diagnosis: moderate oropharyngeal dysphagia (R13.12) Impression: Swallow function is marked by poor hyolaryngeal excursion contributing to incomplete epiglottic inversion and poor PES distention/duration. Dobhoff feeding tube was present for initial thin liquid trial by teaspoon which prevented epiglottic inversion and reduced airway closure w/ resultant in pene tration/aspiration. Weak throat clearing response to aspirate was noted, but not sufficient to expel penetrated/aspirated contrast. Dobhoff feeding tube was removed per physician order w/ improved epiglottic inversion evident in subsequent trials, although still incomplete d/t pharyngeal edema s/p cervical surgery. Epiglottic inversion improved d/t the added weight w/ increased bolus viscosities. Significant pharyngal residue retention d/t incomplete epiglottic inversion and absent pharyngeal stripping wave/contraction. Multiple and effortful swallows were only somewhat effective to reduce pharyngeal residue, but resulted in increased laryngeal vestibule penetration of residue w/ subsequent swallows. - Recommendations Diet: NPO - Consideration for an alternative means of nutrition/hydration/medication is recommended. Would discourage reinsertion of dobhoff feeding tube d/t significant negative impact on swallow function and potential benefit from dysphagia intervention. Recommend Repeat Modified Barium Swallow: Yes - 2-4 weeks Need for Skilled Speech Therapy Services: Yes Comment: Recommend moderately thick liquid trials under direct ST supervision only w/ liquid presentation via teaspoon. Would benefit from implementation of the Márquez Free Water Protocol to facilitate increased swallowing opportunities. Must wait 60 minutes after PO trials w/ ST before free water intake is allowed. Initiate oropharyngeal strengthening exercises to target hyolaryngeal excursion, epiglottic inversion, PES opening and pharyngeal contraction. Education Completed: 1. Described result of evaluation., 2. Pt understands evaluation & agrees with goals and treatment plan. Comment: Images were reviewed and results/recommendations were discussed with the patient and referring physician immediately following MBS completion. The patient verbalized understanding and agreement with all recommendations and education provided. - Status Active ST Patient: Active - Contact Information [facility] Speech Therapy:: Vanessa Anne M.A., CCC-INTERCHANGE AGENT [facility] [address] [place] [address] [phone] [email or web address]
[2021-03-12] MEDS: Gabapentin 100 MG Capsule PO (17:32)
--- NOTE | 2021-03-12 18:14 | PCM.PN.BLA ---
Progress Note Afebrile VSS maintaining appropriate oxygen saturation on RA remains NPO He continues to complain of severe right shoulder pain. The pain is there even when he is lying in bed. He describes an ache in the right arm that extends from the shoulder down to his fingers. He tells me that the nurses have not been putting the cream on but, they have and this is documented. We added a Fentanyl patch yesterday and increased the Robaxin to 4 X's a day yet the pain is even worse today. He tells me that the cervical collar makes it worse. He had a MBS today and did not do well even after the Corpak was removed. I discussed the results with the ST and she sees swelling of the epiglottis and post pharynx and is afraid that if he is started on even honey thick liquids he will aspirate. He has not been swallowing for the past couple weeks and the muscles in the posterior pharynx are weak. Physical Exam Extremity Extremity Narrative: He has no pain with palpation of the biceps tendon now....this resolved with the arthritis cream. He has some localized spasm in the R trapezius muscle which is painful to palpate. Rotation of the neck does not increase the pain. He has no pain with palpation around the incision in the upper thoracic area. there is bruising of this area but, no erythema and no increased warmth to touch. there is no dehiscence and no DC. He has full ROM of the RUE. There is no swelling of the RUE. He had severe pain even after Oxycodone. Skin Skin Narrative: He has picked the eschar off the chin and fortunately it is not bleeding. Assessment & Plan Assessment/Plan (1) Debility: PLAN: Continue therapy. (2) Radicular pain in right arm: PLAN: I suspect the pain in the R arm is radicular. Exam is unremarkable and narcotics and muscle relaxers are not really helping. Will try Gabapentin 100 mg BID. If this is effective will start to taper narcotics and muscle relaxers. (3) Cervical vertebral fracture: (4) Cervical vertebral fusion: PLAN: Incisions are intact and have no sign of infection (5) Oropharyngeal dysphagia: PLAN: Due to swelling but, also due to muscle weakness from not swallowing for the past few weeks. Needs continued ST. The Corpak makes it very difficult to do the exercises to strengthen the swallowing muscles and I think it is irritating the posterior pharynx and contributing to sore throat, hoarseness and swelling. ST wants to defer another MBS for a a month before trying again. I discussed a PEG with the pt, his and his dtr Kassandra who is the POA. they are in agreement with placing a PEG. Dr. Winter has been consulted and will see the pt tomorrow. Will give his meds in thickened applesauce tonight, start an IV and keep NPO. (6) Cognitive dysfunction: PLAN: I suspect this is due to medications and will resolve when the meds are tapered. He has been sleeping well at night and has not been agitated so will decrease the Seroquel to 12.5 mg Q HS. (7) Biceps tendonitis on right: PLAN: this has resolved with ice and arthritic cream. Visit Charges Inpatient E&M: 28149 Subs Hosp L2
[2021-03-12 20:14] VITALS: BP 100/56; PULSE 89; RESP 16; TEMP 36.8; O2SAT 98
[2021-03-12] MEDS: QUEtiapine 25 MG Tablet 12.5 MG PO (20:22)
[2021-03-12 23:58] VITALS: BP 100/56; PULSE 89
[2021-03-12] MEDS: MELATONIN 3 MG TABLET NG (23:58)
[2021-03-12] MEDS: Lactulose 20 GM/30 ML UDC NG (23:59)
[2021-03-13] VITALS (12 sets, daily range): BP systolic 116–136; BP diastolic 45–66; PULSE 73–82; RESP 12–18; TEMP 36.3–36.9; O2SAT 92–99
[2021-03-13] MEDS: Arthritis Pain Compound 60 CLICK TUBE TOPICAL ×3 (05:48→21:32)
[2021-03-13] MEDS: Acetaminophen 650 MG Suppository RC ×2 (06:11→21:34)
[2021-03-13] MEDS: Gabapentin 100 MG Capsule PO ×2 (08:15→17:27)
[2021-03-13] MEDS: Oxymetazoline 0.05% 1 SPRAY SPRAY.BTL NASAL ×2 (08:15→21:31)
[2021-03-13] MEDS: Senna Tablet 1 TABLET NG ×2 (08:15→21:34)
[2021-03-13] MEDS: Methocarbamol 500 MG Tablet NG ×3 (08:16→21:34)
[2021-03-13] MEDS: Metoprolol Tartrate 25 MG Tablet 12.5 MG NG ×2 (08:16→21:32)
[2021-03-13] MEDS: Allopurinol 100 MG Tablet 400 MG NG (08:16)
[2021-03-13] MEDS: amLODIPine 10 MG Tablet NG (08:16)
[2021-03-13] MEDS: NYSTATIN 500,000 UNIT/5 ML UDC 500000 UNIT PO ×4 (08:16→21:34)
--- NOTE | 2021-03-13 12:24 | SUR.PREOP ---
pt down to ac from rehab. oriented to plan of care milton coleman. ivf hung. consent signed call lt with in reach
--- NOTE | 2021-03-13 12:42 | EX.PCM.CON.S ---
Assessment & Plan Assessment/Plan (1) Uses feeding tube: PLAN: My plan is to place a feeding tube. We would do this via percutaneous endoscopic gastrostomy tube placement in endoscopy.I have discussed the above with the patient. I have offered the patient esophagogastroduodenoscopy for evaluation. I have explained the risks/benefits of the procedure and described the procedure. I have discussed the risks with the patient, including but not limited to: infection, bleeding, perforation of the GI tract requiring emergency surgery, inability to complete the procedure, injury to any internal organs, complications of anesthesia, etc. - the patient understands and agrees to proceed. I have answered all the patient's questions to the patient's satisfaction and the patient has no further questions. The patient has been given instructions for the colon cleansing preparation. (2) Oropharyngeal dysphagia: (3) Cervical vertebral fracture: QUALIFIERS: Encounter type: sequela HPI Consult Data Date of Consult: 03/13/21 HPI Narrative HPI Narrative: MITCHELL MOSS, is a 76 YO M with a PMH of CAD, PCI with 3 stents present, ischemic CM (recent TTE showed a 65 % EF), HLD, obesity, gout, HTN and OA who fell on 02/24/21 in his garage and he struck his chin on a toolbox. Injuries sustained include a C7 superior endplate fracture, right C7 laminar fracture, C6-C7 vertebral widening, left vertebral artery occlusion and a deep complex submandibular laceration. He also lost teeth and has dental instability. He underwent emergency surgery on 02/25/21 for anterior cervical C6/7 partial corpectomy, arthrodesis, cadaveric fibular strut graft, posterior cervical C5, 6, T1, T2 instrumentation with posterolateral arthrodesis and reduction of fracture. The dentist recommended extraction of #7 and #8 teeth as an OP. Post operatively he had pharyngeal dysphagia and was made NPO. a MBS showed aspiration of thin and and nectar consistencies. There was laryngeal penetration with pur?e and honey consistency. A Dobhoff feeding tube was inserted. He was evaluated by PT/OT/ST and transfer to acute rehab was recommended. He was admitted to the acute inpt rehab unit at [facility] on 03/06/21 for 3 hours of therapy daily to restore function/independence at or near his prior level of function. He has been having silent aspiration and will need to have a PEG tube. [facility] Medical History CAD (coronary artery disease) Gout Hyperlipemia Ischemic cardiomyopathy Home Medications acetaminophen 650 mg PO Q4H PRN 03/06/21 [History Last Taken Unknown] allopurinol 400 mg FEEDING TUBE DAILY 03/06/21 [History Last Taken Unknown] amlodipine 10 mg FEEDING TUBE DAILY 03/06/21 [History Last Taken Unknown] aspirin 81 mg FEEDING TUBE DAILY 03/06/21 [History Last Taken Unknown] cetirizine 10 mg FEEDING TUBE DAILY 03/06/21 [History Last Taken Unknown] cyanocobalamin (vitamin B-12) 1,000 mcg SUBCUT QMONTH 03/06/21 [History Last Taken 02/22/21 08:00] fluvastatin 40 mg FEEDING TUBE DAILY 03/06/21 [History Last Taken Unknown] lactulose 30 ml FEEDING TUBE QHS 03/06/21 [History Last Taken Unknown] melatonin 5 mg FEEDING TUBE QHS 03/06/21 [History Last Taken Unknown] methocarbamol 500 mg FEEDING TUBE Q6H 03/06/21 [History Last Taken Unknown] metoprolol succinate 25 mg PO DAILY 03/06/21 [History Last Taken Unknown] metoprolol tartrate 12.5 mg FEEDING TUBE BID 03/06/21 [History Last Taken Unknown] nitroglycerin 0.4 mg SUBLINGUAL Q5M PRN 03/06/21 [History Last Taken Unknown] oxycodone 5 mg PO Q4H PRN 03/06/21 [History Last Taken Unknown] polyethylene glycol 3350 17 g FEEDING TUBE DAILY 03/06/21 [History Last Taken Unknown] sennosides [senna] 5 ml FEEDING TUBE BID 03/06/21 [History Last Taken Unknown] Allergy/AdvReac Type Severity Reaction Status Date / Time lisinopril Allergy PT UNSURE Verified 03/06/21 15:08 OF REACTION atorvastatin AdvReac Intermediate muscle pain Verified 03/06/21 17:30 Surgical History Cervical vertebral fusion Social History household members: spouse housing: house Smoking Status: Never smoker ROS Cardiovascular Cardiovascular: Denies chest pain Respiratory/Chest Respiratory/Chest: Denies cough or dyspnea Gastrointestinal Gastrointestinal: Denies abdominal pain or bloating Physical Exam Const alert and oriented x3 General Appearance: cooperative HEENT normocephalic and head/scalp atraumatic Eyes PERRL and EOMs intact bilaterally Neck Neck Narrative: Cervical collar is in place Resp normal respiratory effort and clear to auscultation bilaterally Cardio Rate: regular rate Rhythm: regular rhythm GI soft to palpation, non-tender and non-distended Lab / Micro Data Result Diagrams: 03/07/21 07:35 03/07/21 07:35
[2021-03-13] MEDS: Cefazolin 2 GM in 0.9% Normal Saline 100 ML IV (12:44)
--- NOTE | 2021-03-13 13:04 | OP.EGD_ITS ---
Patient Name: Sp Levin Procedure Date: 03/13/2021 11:47 AM Date of : 1945 Age: 76 Procedure: Upper GI endoscopy Indications: Oropharyngeal phase dysphagia Providers: Rafi Winter MD Medicines: See the Anesthesia note for documentation of the administered medications Patient Profile: This is a 76 year old male. Refer to note in patient chart for documentation of history and physical. Complications: No immediate complications. Estimated blood loss: Minimal. Procedure: Pre-Anesthesia Assessment: - Prior to the procedure, a History and Physical was performed, and patient medications and allergies were reviewed. The patient's tolerance of previous anesthesia was also reviewed. The risks and benefits of the procedure and the sedation options and risks were discussed with the patient. All questions were answered, and informed consent was obtained. Prior Anticoagulants: The patient has taken no previous anticoagulant or antiplatelet agents. ASA Grade Assessment: III - A patient with severe systemic disease. After reviewing the risks and benefits, the patient was deemed in satisfactory condition to undergo the procedure. After obtaining informed consent, the endoscope was passed under direct vision. Throughout the procedure, the patient's blood pressure, pulse, and oxygen saturations were monitored continuously. The gastroscope was introduced through the mouth, and advanced to the duodenal bulb. The upper GI endoscopy was accomplished without difficulty. The patient tolerated the procedure well. Scope In: 12:50:37 PM Scope Out: 1:57:14 PM Total Procedure Duration Time 1 hour 6 minutes 37 seconds Findings: The examined esophagus was normal. The entire examined stomach was normal. Placement of an externally removable PEG with no T-fasteners was successfully completed. The external bumper was at the 5.5 cm marking on the tube. Estimated blood loss was minimal. Estimated blood loss was minimal. The duodenal bulb was normal. No biopsies or other specimens were collected for this exam. Impression: - Normal esophagus. - Normal stomach. - Normal duodenal bulb. No specimens collected. - An externally removable PEG placement was successfully completed. Recommendation: - [facility]. - Resume previous diet. - Continue present medications. - Please follow the post-PEG recommendations including: Nutrition consult for formula and volume, advance food and medications per primary care provider, NPO x4 hrs then water today, antibiotic ointment to site, check site for bleeding q 4 hrs, clean site with soap and water daily and dry thoroughly and clean site daily with half-strength hydrogen peroxide for three days, then soap and water daily. Procedure Code(s): --- Professional --- 30747, Esophagogastroduodenoscopy, flexible, transoral; with directed placement of percutaneous gastrostomy tube Diagnosis Code(s): --- Professional --- R13.12, Dysphagia, oropharyngeal phase CPT copyright 2017 [employer]. All rights reserved. The codes documented in this report are preliminary and upon pot tender review may be revised to meet current compliance requirements. MD Rafi Camarillo MD 03/13/2021 1:04:01 PM This report has been signed electronically. Number of Addenda: 0 Note Initiated On: 03/13/2021 11:47 AM
--- NOTE | 2021-03-13 13:05 | OP.CCLET_ITS ---
03/13/2021 Manan Jacome [address] [id number] Re : Upper GI endoscopy procedure for Sp Levin Dear Dr. Jacome This procedure was performed on Saturday, March 13, 2021. My impressions and recommendations are as follows: Impressions : - Normal esophagus. - Normal stomach. - Normal duodenal bulb. No specimens collected. - An externally removable PEG placement was successfully completed. Recommendations : - Return patient to [facility] care. - Resume previous diet. - Continue present medications. - Please follow the post-PEG recommendations including: Nutrition consult for formula and volume, advance food and medications per primary care provider, NPO x4 hrs then water today, antibiotic ointment to site, check site for bleeding q 4 hrs, clean site with soap and water daily and dry thoroughly and clean site daily with half-strength hydrogen peroxide for three days, then soap and water daily. My findings are described in the full procedure note, which is enclosed. If I can be of further assistance, please feel free to contact me at Doctor phone number(s): , Fax: [phone], Work: . Sincerely, MD Rafi Camarillo MD 03/13/2021 1:04:01 PM This report has been signed electronically.
--- NOTE | 2021-03-13 15:17 | NURSING ---
Daughter aware of patient's departure and return post peg placement and patient is doing well. NO complaints voiced.
[2021-03-13] MEDS: QUEtiapine 25 MG Tablet 12.5 MG PO (17:35)
[2021-03-13] MEDS: MELATONIN 3 MG TABLET NG (21:33)
[2021-03-13] MEDS: oxyCODONE 5 MG Tablet NG (21:35)
[2021-03-14] MEDS: oxyCODONE 5 MG Tablet NG ×2 (04:07→21:33)
[2021-03-14] MEDS: Acetaminophen 650 MG Suppository RC (04:12)
[2021-03-14] MEDS: Arthritis Pain Compound 60 CLICK TUBE TOPICAL ×3 (06:41→21:37)
[2021-03-14 08:32] VITALS: BP 123/61; PULSE 69; RESP 18; TEMP 36.9; O2SAT 92
[2021-03-14 09:05] VITALS: PULSE 70
[2021-03-14] MEDS: Gabapentin 100 MG Capsule PO ×2 (09:05→17:51)
[2021-03-14] MEDS: Senna Tablet 1 TABLET NG ×2 (09:05→21:35)
[2021-03-14] MEDS: Metoprolol Tartrate 25 MG Tablet 12.5 MG NG ×2 (09:05→21:36)
[2021-03-14] MEDS: Aspirin 81 MG TAB.CHEW NG (09:05)
[2021-03-14] MEDS: Oxymetazoline 0.05% 1 SPRAY SPRAY.BTL NASAL ×2 (09:06→21:38)
[2021-03-14] MEDS: amLODIPine 10 MG Tablet NG (09:07)
[2021-03-14] MEDS: NYSTATIN 500,000 UNIT/5 ML UDC 500000 UNIT PO ×4 (09:07→21:36)
[2021-03-14] MEDS: Polyethylene Glycol 3350 17 GM PACKET NG (09:07)
[2021-03-14] MEDS: Allopurinol 100 MG Tablet 400 MG NG (09:08)
[2021-03-14] MEDS: Methocarbamol 500 MG Tablet NG ×4 (09:08→21:35)
[2021-03-14] MEDS: Pivot 1.5 Cal 1,000 ML BOTTLE 260 ML GT ×4 (09:13→21:47)
[2021-03-14] MEDS: Acetaminophen 650 MG/20 ML UDC 1000 MG NG ×2 (15:43→21:34)
[2021-03-14] MEDS: QUEtiapine 25 MG Tablet 12.5 MG PO (17:52)
[2021-03-14 19:22] VITALS: BP 141/62; PULSE 78; RESP 16; TEMP 36.2; O2SAT 96
[2021-03-14 21:36] VITALS: BP 141/62; PULSE 78
[2021-03-14] MEDS: MELATONIN 3 MG TABLET NG (21:36)
[2021-03-14] MEDS: Lactulose 20 GM/30 ML UDC NG (21:37)
[2021-03-15] MEDS: oxyCODONE 5 MG Tablet NG (05:13)
[2021-03-15] MEDS: Acetaminophen 650 MG/20 ML UDC 1000 MG NG ×3 (05:13→20:12)
[2021-03-15] MEDS: Pivot 1.5 Cal 1,000 ML BOTTLE 260 ML GT ×5 (05:14→23:33)
[2021-03-15] MEDS: Arthritis Pain Compound 60 CLICK TUBE TOPICAL ×3 (05:14→20:03)
[2021-03-15 08:15] VITALS: BP 124/67; PULSE 75; RESP 15; TEMP 36.7; O2SAT 96
[2021-03-15 09:42] VITALS: PULSE 80
[2021-03-15] MEDS: Methocarbamol 500 MG Tablet NG ×4 (09:42→20:03)
[2021-03-15] MEDS: Allopurinol 100 MG Tablet 400 MG NG (09:42)
[2021-03-15] MEDS: amLODIPine 10 MG Tablet NG (09:42)
[2021-03-15] MEDS: Metoprolol Tartrate 25 MG Tablet 12.5 MG NG ×2 (09:42→20:14)
[2021-03-15] MEDS: Polyethylene Glycol 3350 17 GM PACKET NG (09:44)
[2021-03-15] MEDS: NYSTATIN 500,000 UNIT/5 ML UDC 500000 UNIT PO ×4 (09:44→20:03)
[2021-03-15] MEDS: Gabapentin 100 MG Capsule PO ×2 (09:45→17:00)
[2021-03-15] MEDS: Aspirin 81 MG TAB.CHEW NG (09:45)
[2021-03-15] MEDS: Senna Tablet 1 TABLET NG (09:45)
[2021-03-15] MEDS: Oxymetazoline 0.05% 1 SPRAY SPRAY.BTL NASAL ×2 (09:46→20:04)
[2021-03-15] MEDS: Magnesium Hydroxide 30 ML UDC PO (16:06)
[2021-03-15] MEDS: QUEtiapine 25 MG Tablet 12.5 MG PO (17:03)
[2021-03-15] MEDS: MELATONIN 3 MG TABLET NG (20:03)
[2021-03-15 20:11] VITALS: BP 126/53; PULSE 73; RESP 16; TEMP 36.5; O2SAT 100
[2021-03-15 20:14] VITALS: BP 126/53; PULSE 73
[2021-03-16] MEDS: Acetaminophen 650 MG/20 ML UDC 1000 MG NG ×3 (05:33→23:10)
[2021-03-16] MEDS: Pivot 1.5 Cal 1,000 ML BOTTLE 260 ML GT ×5 (05:42→23:14)
[2021-03-16] MEDS: Arthritis Pain Compound 60 CLICK TUBE TOPICAL ×3 (05:42→23:05)
[2021-03-16 08:03] VITALS: BP 145/63; PULSE 74; RESP 16; TEMP 37.2; O2SAT 96
[2021-03-16] MEDS: NYSTATIN 500,000 UNIT/5 ML UDC 500000 UNIT PO ×4 (10:13→23:08)
[2021-03-16] MEDS: Oxymetazoline 0.05% 1 SPRAY SPRAY.BTL NASAL ×2 (10:13→23:06)
[2021-03-16 10:14] VITALS: BP 145/63; PULSE 74
[2021-03-16] MEDS: Metoprolol Tartrate 25 MG Tablet 12.5 MG NG ×2 (10:14→23:07)
[2021-03-16] MEDS: Aspirin 81 MG TAB.CHEW NG (10:15)
[2021-03-16] MEDS: amLODIPine 10 MG Tablet NG (10:15)
[2021-03-16] MEDS: Gabapentin 100 MG Capsule PO ×2 (10:15→17:45)
[2021-03-16] MEDS: Methocarbamol 500 MG Tablet NG ×3 (10:16→23:09)
[2021-03-16] MEDS: Allopurinol 100 MG Tablet 400 MG NG (10:16)
--- NOTE | 2021-03-16 15:42 | PN_ITS ---
Progress Note Afebrile VSS Maintaining appropriate oxygen saturation on RA Márquez wqater only for fluid intake orally. He is receiving nutrition via the PEG tube. Discussed with nursing - no problems that need addressed Reviewed the PT/OT/ST notes Medication list reviewed. He is much more energetic today and he walked at [facility] without an assistive device. He is smiling and doing very well at therapy. He has no complaints. the pain in the R arm is much better with the GAbapentin. Physical Exam Const alert and oriented x3 Constitutional Narrative: Sitting in the recliner at the bedside. Appears comfortable. General Appearance: cooperative, well kempt and well developed Orientation / Consciousness: awake, oriented to person, oriented to place and oriented to time Nutritional Appearance: obese Eyes PERRL, conjunctivae normal and no scleral icterus Neck Neck Narrative: He has a R carotid bruit. Resp normal respiratory effort, normal air movement, no use of accessory muscles and clear to auscultation bilaterally Resp Narrative: diminished but CTA. Symmetrical chest movement. No conversational dyspnea. Effort and Inspection: able to speak in complete sentences Cardio regular rate, regular rhythm, S1 normal heart sound, S2 normal heart sound, no murmurs, no rub and no gallops Cardio Narrative: occasional premature beat GI normal to inspection, nondistended, normoactive bowel sounds, soft to palpation, non-tender and non-distended GI Narrative: normal bowel sounds Back/Spine normal to inspection Extremity no clubbing, cyanosis or edema, no calf tenderness and no pedal edema Skin no jaundice General Skin Exam: no breakdown and petechiae Rashes: no rashes Neuro CN's II-XII intact bilaterally, moves all extremities, no focal motor deficits and no sensory deficits noted Meningeal Signs: no meningeal signs Psych mental status grossly normal, thought process normal, cooperative, affect normal, denies homicidal ideation and denies suicidal ideation Psych Narrative: Appearance: grossly normal and appropriate Activity / Motor Behavior: appropriate eye contact; Negative for psychomotor agitation Assessment & Plan Assessment/Plan (1) Radicular pain in right arm: (2) Oropharyngeal dysphagia: (3) Cervical vertebral fusion: PLAN: 1. Continue therapy 2. All nutrition via the PEG for now. Suspect the swelling in the posterior pharynx will take a quite a while to dissipate due to the severity of the trauma and the subsequent ORIF with anterior and posterior incisions. 3. Continue GAbapentin Visit Charges Inpatient E&M: 66729 Subs Hosp L2
[2021-03-16] MEDS: QUEtiapine 25 MG Tablet 12.5 MG PO (17:45)
[2021-03-16 19:27] VITALS: BP 128/58; PULSE 77; RESP 16; TEMP 36.4; O2SAT 93
[2021-03-16 22:00] VITALS: PULSE 77; RESP 16
[2021-03-16] MEDS: Lactulose 20 GM/30 ML UDC NG (23:06)
[2021-03-16 23:07] VITALS: PULSE 72
[2021-03-16] MEDS: MELATONIN 3 MG TABLET NG (23:08)
[2021-03-17] MEDS: oxyCODONE 5 MG Tablet NG (01:16)
--- NOTE | 2021-03-17 01:27 | NURSING ---
Pt awakened by pain in upper back. Oxyir PRN provided for 7/10 pain. Pt repositioned to recliner and refused Polar Care at this time. Will continue to monitor.
[2021-03-17] MEDS: Acetaminophen 650 MG/20 ML UDC 1000 MG NG ×3 (06:53→21:41)
[2021-03-17] MEDS: Arthritis Pain Compound 60 CLICK TUBE TOPICAL ×3 (06:53→21:28)
[2021-03-17] MEDS: Pivot 1.5 Cal 1,000 ML BOTTLE 260 ML GT ×5 (06:53→21:29)
[2021-03-17 09:09] VITALS: BP 105/52; PULSE 72; RESP 16; TEMP 36.6; O2SAT 100
[2021-03-17] MEDS: Aspirin 81 MG TAB.CHEW NG (10:43)
[2021-03-17] MEDS: Gabapentin 100 MG Capsule PO ×2 (10:43→17:28)
[2021-03-17 10:44] VITALS: PULSE 72
[2021-03-17] MEDS: Oxymetazoline 0.05% 1 SPRAY SPRAY.BTL NASAL ×2 (10:44→21:28)
[2021-03-17] MEDS: amLODIPine 10 MG Tablet NG (10:44)
[2021-03-17] MEDS: Metoprolol Tartrate 25 MG Tablet 12.5 MG NG ×2 (10:44→21:28)
[2021-03-17] MEDS: NYSTATIN 500,000 UNIT/5 ML UDC 500000 UNIT PO ×4 (10:44→21:28)
[2021-03-17] MEDS: Allopurinol 100 MG Tablet 400 MG NG (10:45)
[2021-03-17] MEDS: Methocarbamol 500 MG Tablet NG ×4 (10:45→21:28)
--- NOTE | 2021-03-17 12:38 | NURSING ---
spoke with Isabell from Dr Matos office o to remove stanley on . F/U on DC from rehab
[2021-03-17] MEDS: QUEtiapine 25 MG Tablet 12.5 MG PO (17:28)
[2021-03-17 19:21] VITALS: BP 149/65; PULSE 75; RESP 18; TEMP 36.6; O2SAT 97
[2021-03-17 21:28] VITALS: PULSE 75
[2021-03-17] MEDS: MELATONIN 3 MG TABLET NG (21:28)
[2021-03-17] MEDS: Lactulose 20 GM/30 ML UDC NG (21:28)
[2021-03-17] MEDS: Senna Tablet 1 TABLET NG (21:28)
[2021-03-18] MEDS: Acetaminophen 650 MG/20 ML UDC 1000 MG NG ×3 (06:04→21:06)
[2021-03-18] MEDS: Arthritis Pain Compound 60 CLICK TUBE TOPICAL ×3 (06:04→21:03)
[2021-03-18] MEDS: Pivot 1.5 Cal 1,000 ML BOTTLE 260 ML GT ×5 (06:05→21:09)
[2021-03-18 07:54] VITALS: BP 143/75; PULSE 78; RESP 16; TEMP 36.7; O2SAT 95
[2021-03-18] MEDS: oxyCODONE 5 MG Tablet NG (09:16)
[2021-03-18] MEDS: NYSTATIN 500,000 UNIT/5 ML UDC 500000 UNIT PO ×4 (10:01→21:06)
[2021-03-18] MEDS: Gabapentin 100 MG Capsule PO ×2 (10:01→17:58)
[2021-03-18] MEDS: Allopurinol 100 MG Tablet 400 MG NG (10:01)
[2021-03-18 10:02] VITALS: BP 143/75; PULSE 78
[2021-03-18] MEDS: amLODIPine 10 MG Tablet NG (10:02)
[2021-03-18] MEDS: Aspirin 81 MG TAB.CHEW NG (10:02)
[2021-03-18] MEDS: Metoprolol Tartrate 25 MG Tablet 12.5 MG NG ×2 (10:02→21:04)
[2021-03-18] MEDS: Oxymetazoline 0.05% 1 SPRAY SPRAY.BTL NASAL ×2 (10:02→21:03)
[2021-03-18] MEDS: Methocarbamol 500 MG Tablet NG ×4 (10:03→21:06)
--- NOTE | 2021-03-18 11:00 | NURSING ---
25 stanley and 1 suture removed form neck and back. no S/S infection noted. pt tolerated well
[2021-03-18] MEDS: QUEtiapine 25 MG Tablet 12.5 MG PO (17:59)
[2021-03-18 19:07] VITALS: BP 128/61; PULSE 81; RESP 18; TEMP 36.4; O2SAT 95
[2021-03-18 21:04] VITALS: BP 128/61; PULSE 81
[2021-03-18] MEDS: Lactulose 20 GM/30 ML UDC NG (21:04)
[2021-03-18] MEDS: MELATONIN 3 MG TABLET NG (21:05)
[2021-03-19] MEDS: oxyCODONE 5 MG Tablet NG ×2 (03:17→23:23)
[2021-03-19] MEDS: Acetaminophen 650 MG/20 ML UDC 1000 MG NG ×3 (06:59→23:40)
[2021-03-19] MEDS: Arthritis Pain Compound 60 CLICK TUBE TOPICAL ×3 (06:59→23:20)
[2021-03-19] MEDS: Pivot 1.5 Cal 1,000 ML BOTTLE 260 ML GT ×5 (07:00→23:25)
[2021-03-19 08:39] VITALS: BP 119/52; PULSE 72; RESP 18; TEMP 36.6; O2SAT 96
--- NOTE | 2021-03-19 08:42 | PCM.PN.BLA ---
Progress Note Sp was seen on TEAM rounds today. His and dtr were present in the room. Afebrile VSS Maintaining appropriate oxygen saturation on RA intake is good Discussed with nursing - no problems that need addressed Reviewed the PT/OT/ST notes Medication list reviewed. Rarely taking Oxycodone now. He remains on a 12.5 mcg Fentanyl patch. He is still getting the Robaxin 4 X's a day. Denies pain in the R arm now. Is doing very well with biceps curls now. Denies N/V/abd pain/diarrhea/ lightheadedness, CP, SOB, cough. Physical Exam Const alert and oriented x3 Constitutional Narrative: Sitting in the recliner at the bedside. He is tearful when talking about going home. General Appearance: cooperative, well kempt and well developed Resp normal respiratory effort, normal air movement, no use of accessory muscles and clear to auscultation bilaterally Effort and Inspection: able to speak in complete sentences Cardio regular rate, regular rhythm and no gallops GI normal to inspection, nondistended, normoactive bowel sounds Extremity no calf tenderness Skin Skin Narrative: [place] have been removed and there is no dehiscence, no purulent DC and no gely-incisional erythema. Swelling in the neck has decreased. General Skin Exam: no breakdown Rashes: no rashes Psych mental status grossly normal and thought process normal Psych Narrative: tearful but, not really depressed, just wanting to go home. Assessment & Plan Assessment/Plan (1) Radicular pain in right arm: (2) Cervical vertebral fracture: QUALIFIERS: Encounter type: sequela (3) Oropharyngeal dysphagia: (4) Debility: (5) Cervical vertebral fusion: (6) Biceps tendonitis on right: PLAN: 1. CBC and CMP in the AM 2. DC the senna and change the Miralax to PRN. He is on lactulose daily at HS 3. Decrease the Robaxin to TID 4. DC the Seroquel 5. DC the Fentanyl and continue Oxycodone 5-10 mg Q4 H PRN in the next couple days 6. we have set a DC date for next Tuesday and Sp is agreeable. He will be be going to [facility] 3 times a week for ST and will also get PT and OT. Will need another MBS prior to taking anything other than water by mouth. Visit Charges Inpatient E&M: 74024 Subs Hosp L2
[2021-03-19 09:28] VITALS: PULSE 72
[2021-03-19] MEDS: Metoprolol Tartrate 25 MG Tablet 12.5 MG NG ×2 (09:28→23:21)
[2021-03-19] MEDS: Aspirin 81 MG TAB.CHEW NG (09:28)
[2021-03-19] MEDS: Gabapentin 100 MG Capsule PO ×2 (09:28→17:33)
[2021-03-19] MEDS: NYSTATIN 500,000 UNIT/5 ML UDC 500000 UNIT PO ×4 (09:29→23:22)
[2021-03-19] MEDS: amLODIPine 10 MG Tablet NG (09:29)
[2021-03-19] MEDS: Allopurinol 100 MG Tablet 400 MG NG (09:29)
[2021-03-19] MEDS: Methocarbamol 500 MG Tablet NG ×2 (13:42→23:22)
--- NOTE | 2021-03-19 14:51 | CASEMGMT ---
Social Work Team meeting held with pt, pt's and daughter present. Pt is receiving PT/OT/ST and progressing well. Pt discharge home with set for 03/24/21. Therapy is recommending outpatient PT/OT/ST at [facility] and pt is agreeable. Pt will be returning home with tube feeding. SW will assist in setting this up prior to return home. D/C 03/24/21 home. PRASANNA Grey
[2021-03-19 19:52] VITALS: BP 131/54; PULSE 75; RESP 18; TEMP 36.6; O2SAT 96
[2021-03-19 23:21] VITALS: BP 131/54; PULSE 75
[2021-03-19] MEDS: Lactulose 20 GM/30 ML UDC NG (23:21)
[2021-03-19] MEDS: MELATONIN 3 MG TABLET NG (23:22)
[2021-03-20 05:52] LABS: Hematocrit 33.9 % (40-54); Hemoglobin 10.7 g/dL (13.0-16.5); Mean Corp Hgb Conc 31.6 g/dL (32-36); Mean Corpuscular Hgb 31.7 pg (27.0-32.0); Mean Corpuscular Volume 100.3 fL (80-94); Mean Platelet Vol. 8.6 fl (6.2-12.0); Platelet Count 256 K/mm3 (150-450); RBC Distribution Width SD 55.2 fl (35.1-43.9); Red Blood Count 3.38 M/mm3 (4.6-6.2); White Blood Count 5.6 K/mm3 (4.4-11.0)
[2021-03-20] MEDS: Arthritis Pain Compound 60 CLICK TUBE TOPICAL ×3 (06:27→23:42)
[2021-03-20] MEDS: Acetaminophen 650 MG/20 ML UDC 1000 MG NG ×3 (06:27→23:38)
[2021-03-20] MEDS: Pivot 1.5 Cal 1,000 ML BOTTLE 260 ML GT ×5 (06:28→23:43)
[2021-03-20] MEDS: Methocarbamol 500 MG Tablet NG ×3 (06:28→23:40)
[2021-03-20 06:54] LABS: Anion Gap 6 (5-15); BUN 28 mg/dL (7-18); BUN/Creat Ratio 35.7 RATIO (10-20); Calcium,Total 8.9 mg/dL (8.5-10.1); Chloride 106 mmol/L (98-107); Creatinine, Serum 0.78 mg/dL (0.70-1.30); EST Glomerular Filtration Rate 102 mL/min (>60); Est Glom Filt Rate - Afr Amer 123 mL/min (>60); Estimated Creatinine Clearance 66.82 ml/min; Glucose 120 mg/dL (74-106); Sodium Level 137 mmol/L (136-145)
[2021-03-20 08:27] VITALS: BP 143/77; PULSE 74; RESP 16; TEMP 36.7; O2SAT 98
[2021-03-20 10:30] VITALS: PULSE 74
[2021-03-20] MEDS: NYSTATIN 500,000 UNIT/5 ML UDC 500000 UNIT PO ×4 (10:30→23:42)
[2021-03-20] MEDS: Gabapentin 100 MG Capsule PO ×2 (10:30→18:07)
[2021-03-20] MEDS: Aspirin 81 MG TAB.CHEW NG (10:30)
[2021-03-20] MEDS: Metoprolol Tartrate 25 MG Tablet 12.5 MG NG ×2 (10:30→23:40)
[2021-03-20] MEDS: Allopurinol 100 MG Tablet 400 MG NG (10:30)
[2021-03-20] MEDS: amLODIPine 10 MG Tablet NG (10:30)
--- NOTE | 2021-03-20 11:30 | PN_ITS ---
Progress Note Afebrile Vital signs are stable Blood pressure is adequately controlled Maintaining appropriate oxygen saturation on room air All lab was personally reviewed. Heme globin is 10.7 today, up from 8.4 on 03/07/2021. White blood cell count and platelets are within normal limits. BMP is unremarkable with the exception of an elevated BUN/creatinine ratio of 35.7. Creatinine is stable. He is tolerating the TF without diarrhea. Denies SOB, CP, calf pain, abd pain, N/V, cough, dysuria. He felt good after the demonstration on how to do the PEG feedings yesterday. He will be getting 5 cans a day. Physical Exam Const alert, oriented x3 and no apparent distress Resp normal respiratory effort and clear to auscultation bilaterally Cardio regular rate, regular rhythm and no gallops GI normal to inspection, nondistended, normoactive bowel sounds GI Narrative: the PEG site is free of DC, erythema or breakdown/maceration Skin General Skin Exam: no breakdown Wound Narrative: [place] are out and the incisions are healing well. there is still considerable swelling around the thoracic incision. No erythema and no DC. Psych mental status grossly normal, thought process normal, cooperative and affect normal Assessment & Plan Assessment/Plan (1) Debility: (2) Cervical vertebral fracture: QUALIFIERS: Encounter type: sequela (3) Cervical vertebral fusion: (4) Oropharyngeal dysphagia: (5) Status post insertion of percutaneous endoscopic gastrostomy (PEG) tube: PLAN: 1. Fentanyl was discontinued this AM and he is doing well and denies pain. 2. Plan on DC next Tuesday. 3. will do additional training prior to DC on how to manage the PEG. 4. continue therapy Visit Charges Inpatient E&M: 68010 Subs Hosp L2
--- NOTE | 2021-03-20 11:39 | NS ---
Informed by SW patient to be discharged next week. Assisted SW in completing paperwork for home enteral nutrition supplies. For home, recommend Pivot 1.5 via PEG- 237mL (1 carton) bolus 5x/day w/200mL H2O flush w/ each feeding to provide 1775 calories, 111 g protein, and 1890mL total fluid/day. Educational material for patient and family printed by this RDN and placed in front of patient's chart. Recommend referral to outpatient Nutrition Services for ongoing teaching/assessment of enteral nutrition support. Please call clinical dietitian at [phone] with additional questions or if patient/family would like to meet with someone prior to discharge. Donal Haque MS, RDN, LD
--- NOTE | 2021-03-20 13:54 | CASEMGMT ---
Social Work Referral made to [facility] for Outpatient PT/OT/ST. [facility] will call pt to set up appointments. SW collaborated with Loan Coordinator for tube feeding needs at home. Referral made to [facility] and they will review information and notify SW of ability to accept. SW will await determination from [facility]. PRASANNA Grey
[2021-03-20 18:59] VITALS: BP 122/50; PULSE 76; RESP 16; TEMP 36.4; O2SAT 97
[2021-03-20 23:40] VITALS: BP 122/50; PULSE 76
[2021-03-20] MEDS: MELATONIN 3 MG TABLET NG (23:40)
[2021-03-20] MEDS: Lactulose 20 GM/30 ML UDC NG (23:42)
[2021-03-21] MEDS: Methocarbamol 500 MG Tablet NG ×3 (04:44→21:56)
[2021-03-21] MEDS: Acetaminophen 650 MG/20 ML UDC 1000 MG NG ×3 (04:44→22:05)
[2021-03-21] MEDS: Arthritis Pain Compound 60 CLICK TUBE TOPICAL ×3 (04:44→21:53)
[2021-03-21] MEDS: Pivot 1.5 Cal 1,000 ML BOTTLE 260 ML GT ×5 (04:53→21:59)
[2021-03-21 07:08] VITALS: BP 142/70; PULSE 84; RESP 16; TEMP 36.6; O2SAT 97
[2021-03-21] MEDS: Gabapentin 100 MG Capsule PO ×2 (08:12→18:04)
[2021-03-21] MEDS: amLODIPine 10 MG Tablet NG (08:12)
[2021-03-21 08:13] VITALS: PULSE 70
[2021-03-21] MEDS: Metoprolol Tartrate 25 MG Tablet 12.5 MG NG ×2 (08:13→21:54)
[2021-03-21] MEDS: NYSTATIN 500,000 UNIT/5 ML UDC 500000 UNIT PO ×4 (08:13→21:55)
[2021-03-21] MEDS: Aspirin 81 MG TAB.CHEW NG (08:13)
[2021-03-21] MEDS: Allopurinol 100 MG Tablet 400 MG NG (08:13)
[2021-03-21 21:52] VITALS: BP 134/69; PULSE 69; RESP 18; TEMP 36.5; O2SAT 95
[2021-03-21 21:54] VITALS: PULSE 66
[2021-03-21] MEDS: Lactulose 20 GM/30 ML UDC NG (21:54)
[2021-03-21] MEDS: MELATONIN 3 MG TABLET NG (21:55)
[2021-03-21 22:00] VITALS: RESP 16; O2SAT 96
[2021-03-22] MEDS: Arthritis Pain Compound 60 CLICK TUBE TOPICAL ×3 (06:23→22:00)
[2021-03-22] MEDS: Acetaminophen 650 MG/20 ML UDC 1000 MG NG ×3 (06:23→21:56)
[2021-03-22] MEDS: Methocarbamol 500 MG Tablet NG ×3 (06:24→22:00)
[2021-03-22] MEDS: Pivot 1.5 Cal 1,000 ML BOTTLE 260 ML GT ×5 (06:25→22:00)
[2021-03-22] MEDS: Gabapentin 100 MG Capsule PO ×2 (07:39→17:42)
[2021-03-22] MEDS: Allopurinol 100 MG Tablet 400 MG NG (07:40)
[2021-03-22] MEDS: Aspirin 81 MG TAB.CHEW NG (07:40)
[2021-03-22] MEDS: NYSTATIN 500,000 UNIT/5 ML UDC 500000 UNIT PO ×4 (07:40→21:59)
[2021-03-22 07:42] VITALS: PULSE 77
[2021-03-22] MEDS: Metoprolol Tartrate 25 MG Tablet 12.5 MG NG ×2 (07:42→21:58)
[2021-03-22] MEDS: amLODIPine 10 MG Tablet NG (07:42)
[2021-03-22 07:51] VITALS: BP 134/65; PULSE 74; RESP 18; TEMP 36.5; O2SAT 95
[2021-03-22 19:13] VITALS: BP 149/73; PULSE 71; RESP 18; TEMP 36.3; O2SAT 96
[2021-03-22 21:58] VITALS: PULSE 71
[2021-03-22] MEDS: MELATONIN 3 MG TABLET NG (21:59)
[2021-03-22] MEDS: Lactulose 20 GM/30 ML UDC NG (21:59)
[2021-03-22 22:00] VITALS: PULSE 96; RESP 16; O2SAT 95
[2021-03-23] MEDS: Pivot 1.5 Cal 1,000 ML BOTTLE 260 ML GT ×5 (05:19→22:14)
[2021-03-23] MEDS: Arthritis Pain Compound 60 CLICK TUBE TOPICAL ×4 (05:19→22:30)
[2021-03-23] MEDS: Methocarbamol 500 MG Tablet NG ×3 (05:20→21:14)
[2021-03-23] MEDS: Acetaminophen 650 MG/20 ML UDC 1000 MG NG ×3 (05:20→22:15)
[2021-03-23 08:14] VITALS: BP 118/53; PULSE 75; RESP 16; TEMP 36.6; O2SAT 96
[2021-03-23 10:11] VITALS: BP 118/53; PULSE 75
[2021-03-23] MEDS: amLODIPine 10 MG Tablet NG (10:11)
[2021-03-23] MEDS: Gabapentin 100 MG Capsule PO ×2 (10:11→18:13)
[2021-03-23] MEDS: Metoprolol Tartrate 25 MG Tablet 12.5 MG NG ×2 (10:11→21:12)
[2021-03-23] MEDS: NYSTATIN 500,000 UNIT/5 ML UDC 500000 UNIT PO ×4 (10:11→21:11)
[2021-03-23] MEDS: Allopurinol 100 MG Tablet 400 MG NG (10:11)
[2021-03-23] MEDS: Aspirin 81 MG TAB.CHEW NG (10:11)
--- NOTE | 2021-03-23 10:52 | CASEMGMT ---
Social Work ARVIND received message from [facility] that the specialty formula pt is currently using for tube feeding is not justified and insurance will not cover. ARVIND spoke with Nafisa Cox, Finding Fastener. New orders obtained and refaxed to [facility]. ARVIND spoke with Karlee at [facility] and informed of changes. Karlee will review new orders and return call to ARVIND. PRASANNA Grey
--- NOTE | 2021-03-23 15:13 | CASEMGMT ---
Social Work Return call from [facility] and they are able to accept pt and will contact pt and set up a time to delivery equipment. Call to [facility] and they will call pt to set up PT/OT/ST appointments. Pt, and dgt in pt room and updated. Discharge planned for tomorrow 03/24/21. Pt agreeable. Discharge Date 03/24/21 Discharge Disposition: Home with , Outpatient PT/OT/ST at [facility]. Peg Tube Feedings, dgts to complete, supplies through [facility] PRASANNA Grey
--- NOTE | 2021-03-23 16:23 | DCINST_ITS ---
Discharge Instructions Diet Discharge Diet: - (nothing by mouth. Will continue the TF's) Activity Discharge Activity: May Not Drive and May Shower Weight Bearing Status: Full weight bearing Dressing / Incision Call your doctor if your incision/area has: Continuous Slow Oozing, Sudden Increased Bleeding, Increased Pain/ Swelling, Increased Redness, Foul Smelling Discharge and Swelling at the incision site Call your doctor if you observe: Fever of 101 or Higher, Numbness or Tingling, Inability to urinate, Inability to have a bowel movement, Shortness of breath, Fainting spells, Chest pain, Increased palpitations (irregular heartbeat), Calf discomfort and Uncontrolled pain Suture Line Care: Avoid Pulling/Pushing and Avoid Pinching/Bending Change Dressing in: do not change dressing (alow the incision to remain open to air) Cleanse incision/area with: Soap & Water Follow Up Care Please Follow Up With: Anitra Melendrez NP- Neurology Test Results: Test results from this visit will be discussed in further detail at your follow-up appointment, if applicable. Pending Tests Upon Discharge: none Discharge Plan Admission Admit Date/Time: 03/06/21 14:03 Primary Reason for Your Visit: Debility due to a fall with fractures of the cervical spine Attending Provider: Anitra Harden Primary Care Provider: Manan Jacome Consulting Providers: Rafi Winter Instructions Patient Instructions: Coping with Concussion Additional Instructions / Restrictions: 1. Outpatient PT/OT/ST at [facility]. Tube feeding supplies through [facility]. 2. you have had a few memory issues while in rehab. I do not know if these predated the fall or not. I think it is reasonable to assume you sustained a concussion when you fell and memory issues and MONSON and behavior disturbances are not uncommon with this. Speech therapy will continue to follow you for this and if the deficits persist you may need additional testing. 3. You had major trauma to your neck and chin during the fall. The swelling in the neck and posterior pharynx that is impairing your ability to swallow will resolve. This will take a while......there was a lot of swelling. Be patient. Do not be tempted to eat before speech therapy tells you to.......if you do you may aspirate and this can lead to a bad pneumonia. You will have to have another modified barium swallow test prior to releasing you to eat. 4. You have done very well in therapy and you worked hard. It has been a pleasure getting to know you and your family. If you have any questions after you leave the rehab unit pleases do not hesitate to call me. Office: [phone] Discharge Orders/Prescriptions Prescriptions: New melatonin 3 mg Tablet 3 mg NG QHS Qty: 30 RF: 0 acetaminophen 650 mg/20.3 mL Solution 1,000 mg NG Q8H PRN PRNQty: 0 RF: 0 Arthritis Pain Compound 2 click topical TID Qty: 0 RF: 0 gabapentin 100 mg Capsule 100 mg PO BIDCM Qty: 60 RF: 0 cyclobenzaprine 5 mg tablet 5 mg PO TID PRN (Reason: muscle spasm) Qty: 30 RF: 0 Continued allopurinol 100 mg Tablet 400 mg feeding tube DAILY RF: 0 aspirin 81 mg Tablet,Delayed Release (Dr/Ec) 81 mg feeding tube DAILY RF: 0 fluvastatin 40 mg Capsule 40 mg feeding tube DAILY RF: 0 amlodipine 10 mg Tablet 10 mg feeding tube DAILY RF: 0 cyanocobalamin (vitamin B-12) 1,000 mcg/mL Solution 1,000 mcg SUBCUT QMONTH RF: 0 nitroglycerin 0.4 mg Tablet, Sublingual 0.4 mg SUBLINGUAL Q5M PRN (Reason: Chest Pain) Qty: 1 RF: 0 metoprolol tartrate 25 mg Tablet 12.5 mg feeding tube BID Qty: 30 RF: 0 lactulose 10 gram/15 mL Solution 30 ml feeding tube QHS Qty: 900 RF: 0 Changed oxycodone 5 mg/5 mL Solution 5 mg feeding tube Q4H PRN (Reason: Pain) 7 Days Qty: 21 RF: 0 Discontinued methocarbamol 500 mg Tablet 500 mg feeding tube Q6H RF: 0 polyethylene glycol 3350 17 gram Powder In Packet 17 g feeding tube DAILY RF: 0 cetirizine 10 mg Tablet 10 mg feeding tube DAILY RF: 0 sennosides [senna] 8.8 mg/5 mL Syrup 5 ml feeding tube BID RF: 0 acetaminophen 160 mg/5 mL Solution 650 mg PO Q4H PRN (Reason: Pain) RF: 0 metoprolol succinate 25 mg Tablet Extended Release 24 Hr 25 mg PO DAILY RF: 0 melatonin 5 mg Tablet 5 mg feeding tube QHS RF: 0 Referrals / Follow Up: Rafi Winter MD [STAFF PHYSICIAN] - Manan Jacome DO [Primary Care Provider] - Merrick Ojeda DO [NON-STAFF] - Disposition Disposition (needs filled in before D/C Order can be placed): Home, Self Care
--- NOTE | 2021-03-23 17:17 | PCM.DC.SUM ---
Providers Date of Admission: 03/06/21 Primary Care Physician: Dr. Merrick Ojeda Consultations 03/12/21 18:02 Consult: General Surgery Routine Consulting Provider: Rafi Winter Reason for Consult: PEG insertion EMERGENT Consult: No MD Notified: Yes Date Notified: 03/12/21 Time Notified: 18:03 Method of Notification: Text Reason For Visit: SPINAL FUSION Diagnosis Discharge Diagnosis (1) Debility: Status: Acute Code(s): R53.81 - Other malaise Plan: Continue PT/OT/ST at [facility] (2) Cervical vertebral fracture: Status: Acute Code(s): S12.9XXA - Fracture of neck, unspecified, initial encounter Qualifiers: Encounter type: sequela Plan: S/P cervical fusion (3) Cervical vertebral fusion: Status: Acute Code(s): M43.22 - Fusion of spine, cervical region Plan: Has follow up scheduled with neurosurgery. (4) Oropharyngeal dysphagia: Status: Acute Code(s): R13.12 - Dysphagia, oropharyngeal phase Plan: Has follow up ST scheduled at [facility] (5) Status post insertion of percutaneous endoscopic gastrostomy (PEG) tube: Status: Acute Code(s): Z93.1 - Gastrostomy status Plan: Inserted by Dr. Winter 03/13/21. Can NOT be removed until at least April 25 due to increased risk of bleeding with removal prior to 6 weeks. (6) Concussion: Status: Acute Code(s): S06.0X9A - Concussion with loss of consciousness of unspecified duration, initial encounter Plan: suspected. Behavioral change, MONSON, cognitive dysfunction, etc. (7) Radicular pain in right arm: Status: Acute Code(s): M79.2 - Neuralgia and neuritis, unspecified Plan: Resolved with treatment for biceps tendonitis and addition of Gabapentin to the drug regimen. (8) Laceration: Status: Acute Plan: Laceration of the chin. Healing well. (9) Abnormal LFTs: Status: Acute Code(s): R94.5 - Abnormal results of liver function studies Plan: Resolved (10) Cognitive dysfunction: Status: Acute Code(s): F09 - Unspecified mental disorder due to known physiological condition Plan: This may be due to concussion with mild TBI. Will need further assessment by ST because this could also have preceded the fall. 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 (12) Biceps tendonitis on right: Status: Acute Code(s): M75.21 - Bicipital tendinitis, right shoulder Plan: Resolved with Arthritis compounded cream, ARTHUR and rest. (13) Right carotid bruit: Status: Acute Code(s): R09.89 - Other specified symptoms and signs involving the circulatory and respiratory systems (14) History of PTCA: Status: Chronic Code(s): Z98.61 - Coronary angioplasty status Plan: Will follow up with Cardiology going forward. (15) Macrocytic anemia: Status: Acute Code(s): D53.9 - Nutritional anemia, unspecified (16) Obesity: Status: Acute Code(s): E66.9 - Obesity, unspecified Qualifiers: Body mass index: BMI 34.0-34.9 Obesity classification: adult class 1 (BMI 30 - 34.9) Obesity type: due to excess calories Serious obesity comorbidity presence: with serious comorbidity Qualified Code(s): E66.09 - Other obesity due to excess calories; Z68.34 - Body mass index [BMI] 34.0-34.9, adult (17) Ischemic cardiomyopathy: Status: Acute Code(s): I25.5 - Ischemic cardiomyopathy Plan: EF at the previous hospital was 65%. (18) Hyperlipemia: Status: Acute Code(s): E78.5 - Hyperlipidemia, unspecified (19) Gout: Status: Acute Code(s): M10.9 - Gout, unspecified (20) CAD (coronary artery disease): Status: Acute Code(s): I25.10 - Atherosclerotic heart disease of [place] coronary artery without angina pectoris Medications at Discharge Home Medications allopurinol 400 mg FEEDING TUBE DAILY 03/06/21 amlodipine 10 mg FEEDING TUBE DAILY 03/06/21 aspirin 81 mg FEEDING TUBE DAILY 03/06/21 cyanocobalamin (vitamin B-12) 1,000 mcg SUBCUT QMONTH 03/06/21 fluvastatin 40 mg FEEDING TUBE DAILY 03/06/21 Arthritis Pain Compound 2 click TOPICAL TID #0 03/23/21 acetaminophen 1,000 mg NG Q8H PRN PRN #0 ml 03/23/21 cyclobenzaprine 5 mg PO TID PRN #30 tab 03/23/21 gabapentin 100 mg PO BIDCM #60 cap 03/23/21 lactulose 30 ml FEEDING TUBE QHS #900 ml 03/23/21 melatonin 3 mg NG QHS #30 tab 03/23/21 metoprolol tartrate 12.5 mg FEEDING TUBE BID #30 tab 03/23/21 nitroglycerin 0.4 mg SUBLINGUAL Q5M PRN #1 bottle 03/23/21 oxycodone 5 mg FEEDING TUBE Q4H PRN 7 Days #21 ml 03/23/21 oxycodone 5 mg PO Q4H PRN 7 Days #105 ml 03/24/21 Hospital Course Procedures Peg tube placement (03/13/[address] Rafi Winter.) Summary of Care Provided Minutes Spent on Discharge: 50 Hospital Course: MITCHELL MOSS, is a 76 YO M with a PMH of CAD, PCI with 3 stents present, ischemic CM (recent TTE showed a 65 % EF), HLD, obesity, gout, HTN and OA who fell on 02/24/21 in his garage and he struck his chin on a toolbox. Injuries sustained include a C7 superior endplate fracture, right C7 laminar fracture, C6-C7 vertebral widening, left vertebral artery occlusion and a deep complex submandibular laceration. He also lost teeth and has dental instability. He underwent emergency surgery on 02/25/21 for anterior cervical C6/7 partial corpectomy, arthrodesis, cadaveric fibular strut graft, posterior cervical C5, 6, T1, T2 instrumentation with posterolateral arthrodesis and reduction of fracture. The dentist recommended extraction of #7 and #8 teeth as an OP. Post operatively he had pharyngeal dysphagia and was made NPO. A MBS showed aspiration of thin and and nectar consistencies. There was laryngeal penetration with pur?e and honey thick consistency. A Dobhoff feeding tube was inserted. He was evaluated by PT/OT/ST and transfer to acute rehab was recommended. He was admitted to the acute inpt rehab unit at [facility] on 03/06/21 for 3 hours of therapy daily to restore function/independence at or near his prior level of function. The Dobhoff tube restricted his ability due to do the swallowing exercises given to him by speech therapy. A MBS was done on 03/12/21 and the Dobhoff was removed to see if this improved the swallowing mechanism. The ST recommended he be NPO but, he had trials of moderately thick liquids under direct supervision of the ST with presentation on a spoon. Dr. Rafi Winter was consulted and on 03/13/2021 a PEG tube was inserted. On the MBS a comment was also made that he had esophageal retention. He may need a barium esophagram going forward to evaluate for esophageal pathology. When he first came to us he was on Seroquel for . This resolved prior to DC from rehab and the Seroquel was discontinued. He is sleeping well at night with melatonin 3 mg. Mitchell also had severe R biceps tendonitis at admission to the rehab unit and this was treated with a compounded cream containing Baclofen, Lidocaine and Voltaren, icing and resting the arm but, continuing ROM. Later arm he again complained of R arm pain from the R shoulder to the hand. He had no pain with palpation of the biceps tendon this time. He was started on Gabapentin 100 mg BID and this resolved the pain. He may not need Gabapentin when the swelling has all resolved in the neck. Pedro did very well with therapy. Prior to DC he was ambulating 500 feet without an assistive device at [facility]. He completed the TUG in 14.55 sec on 03/23/21 with no AD. He was able to do 10 stands in 30 seconds at standby assist. He was able to a send/descend 5 steps with a single handrail at standby assist prior to discharge. He required minimal assistance with lower body dressing, upper body dressing and bathing. He was independent with grooming. He remains NPO and is receiving tube feed per a PEG. He was discharged home on 03/24/21 and will being going home. He will be going to [facility] for OP PT/OT/ST. He will follow up with his PCP, Dr. Merrick Ojeda in 7-10 days and with the neurosurgeon. He will also need to follow up with a dentist to extract the loose teeth. He will follow up with Dr. Winter to have the PEG removed when he is able to take a diet but, the PEG must remain in for at least 6 weeks prior to removal to minimize the potential for bleeding with removal. Physical Exam Const alert, oriented x3 and no apparent distress Constitutional Narrative: Sitting in the recliner at the bedside. Appears comfortable. General Appearance: cooperative, well kempt and well developed Orientation / Consciousness: awake, oriented to person, oriented to place and oriented to time Nutritional Appearance: obese Eyes PERRL, conjunctivae normal and no scleral icterus Neck Neck Narrative: He has a R carotid bruit. The incision under the chin and the anterior neck incision are intact without erythema or DC. They are healing well. Resp normal respiratory effort, normal air movement, no use of accessory muscles and clear to auscultation bilaterally Resp Narrative: Diminished but CTA. Symmetrical chest movement. No conversational dyspnea. Effort and Inspection: able to speak in complete sentences Cardio regular rate, regular rhythm, S1 normal heart sound, S2 normal heart sound, no murmurs, no rub and no gallops Cardio Narrative: occasional premature beat GI normal to inspection, nondistended, normoactive bowel sounds, soft to palpation, non-tender and non-distended GI Narrative: The PEG site is free of DC, erythema or breakdown/maceration. He is tolerating the bolus feedings with no residuals. Back/Spine normal to inspection Extremity no clubbing, cyanosis or edema, no calf tenderness and no pedal edema Skin no jaundice Skin Narrative: Kaykay have been removed and there is no dehiscence, no purulent DC and no gely-incisional erythema. Swelling in the neck has decreased. The posterior incisions are healing well. General Skin Exam: no breakdown and petechiae Rashes: no rashes Wound Narrative: Kaykay are out and the incisions are healing well. there is still considerable swelling around the thoracic incision. No erythema and no DC. Neuro CN's II-XII intact bilaterally, moves all extremities, no focal motor deficits and no sensory deficits noted Neuro Narrative: Having a little trouble with short term memory but, I think this may be due to concussion. OP ST will continue to work on this as an OP at [facility]. Meningeal Signs: no meningeal signs Psych mental status grossly normal, thought process normal, cooperative, affect normal, denies homicidal ideation and denies suicidal ideation Psych Narrative: Appearance: grossly normal and appropriate Activity / Motor Behavior: appropriate eye contact; Negative for psychomotor agitation Weight / BMI Weight Weight: 251 lb 5.231 oz Body Mass Index (BMI) 34.4 ABG / Lab / Microbiology Data Result Diagrams: 03/20/21 05:39 03/20/21 05:39 D/C Instructions Discharge Diet: - (nothing by mouth. Will continue the TF's) Weight Bearing Status: Full weight bearing Call your doctor if your incision/area has: Continuous Slow Oozing, Sudden Increased Bleeding, Increased Pain/ Swelling, Increased Redness, Foul Smelling Discharge and Swelling at the incision site Call your doctor if you observe: Fever of 101 or Higher, Numbness or Tingling, Inability to urinate, Inability to have a bowel movement, Shortness of breath, Fainting spells, Chest pain, Increased palpitations (irregular heartbeat), Calf discomfort and Uncontrolled pain Suture Line Care: Avoid Pulling/Pushing and Avoid Pinching/Bending Cleanse incision/area with: Soap & Water Pending Tests Upon Discharge: none Please Follow Up With: Anitra Melendrez NP- Neurology Meaningful Use Info Meaningful Use Diagnoses (Choose all that apply): None applicable Discharge Plan Admission Admit Date/Time: 03/06/21 14:03 Primary Reason for Your Visit: Debility due to a fall with fractures of the cervical spine Attending Provider: Anitra Harden Primary Care Provider: Manan Jacome Consulting Providers: Rafi Winter Instructions Patient Instructions: Coping with Concussion Additional Instructions / Restrictions: 1. Outpatient PT/OT/ST at [facility]. Tube feeding supplies through [facility]. 2. you have had a few memory issues while in rehab. I do not know if these predated the fall or not. I think it is reasonable to assume you sustained a concussion when you fell and memory issues and MONSON and behavior disturbances are not uncommon with this. Speech therapy will continue to follow you for this and if the deficits persist you may need additional testing. 3. You had major trauma to your neck and chin during the fall. The swelling in the neck and posterior pharynx that is impairing your ability to swallow will resolve. This will take a while......there was a lot of swelling. Be patient. Do not be tempted to eat before speech therapy tells you to.......if you do you may aspirate and this can lead to a bad pneumonia. You will have to have another modified barium swallow test prior to releasing you to eat. 4. You have done very well in therapy and you worked hard. It has been a pleasure getting to know you and your family. If you have any questions after you leave the rehab unit pleases do not hesitate to call me. Office: [phone] Discharge Orders/Prescriptions Prescriptions: New melatonin 3 mg Tablet 3 mg NG QHS Qty: 30 RF: 0 acetaminophen 650 mg/20.3 mL Solution 1,000 mg NG Q8H PRN PRNQty: 0 RF: 0 Arthritis Pain Compound 2 click topical TID Qty: 0 RF: 0 gabapentin 100 mg Capsule 100 mg PO BIDCM Qty: 60 RF: 0 cyclobenzaprine 5 mg tablet 5 mg PO TID PRN (Reason: muscle spasm) Qty: 30 RF: 0 oxycodone 5 mg/5 mL solution 5 mg PO Q4H PRN (Reason: pain 4-10) 7 Days Qty: 105 RF: 0 Continued allopurinol 100 mg Tablet 400 mg feeding tube DAILY RF: 0 aspirin 81 mg Tablet,Delayed Release (Dr/Ec) 81 mg feeding tube DAILY RF: 0 fluvastatin 40 mg Capsule 40 mg feeding tube DAILY RF: 0 amlodipine 10 mg Tablet 10 mg feeding tube DAILY RF: 0 cyanocobalamin (vitamin B-12) 1,000 mcg/mL Solution 1,000 mcg SUBCUT QMONTH RF: 0 nitroglycerin 0.4 mg Tablet, Sublingual 0.4 mg SUBLINGUAL Q5M PRN (Reason: Chest Pain) Qty: 1 RF: 0 metoprolol tartrate 25 mg Tablet 12.5 mg feeding tube BID Qty: 30 RF: 0 lactulose 10 gram/15 mL Solution 30 ml feeding tube QHS Qty: 900 RF: 0 Changed oxycodone 5 mg/5 mL Solution 5 mg feeding tube Q4H PRN (Reason: Pain) 7 Days Qty: 21 RF: 0 Discontinued methocarbamol 500 mg Tablet 500 mg feeding tube Q6H RF: 0 polyethylene glycol 3350 17 gram Powder In Packet 17 g feeding tube DAILY RF: 0 cetirizine 10 mg Tablet 10 mg feeding tube DAILY RF: 0 sennosides [senna] 8.8 mg/5 mL Syrup 5 ml feeding tube BID RF: 0 acetaminophen 160 mg/5 mL Solution 650 mg PO Q4H PRN (Reason: Pain) RF: 0 metoprolol succinate 25 mg Tablet Extended Release 24 Hr 25 mg PO DAILY RF: 0 melatonin 5 mg Tablet 5 mg feeding tube QHS RF: 0 Referrals / Follow Up: Rafi Winter MD [STAFF PHYSICIAN] - Manan Jacome DO [Primary Care Provider] - Merrick Ojeda DO [NON-STAFF] - Disposition Disposition (needs filled in before D/C Order can be placed): Home, Self Care Charges/Coding Visit Charges Inpatient E&M: 15913 Disch Hosp
[2021-03-23 21:05] VITALS: BP 119/61; PULSE 74; RESP 17; TEMP 36.8; O2SAT 95
[2021-03-23] MEDS: Lactulose 20 GM/30 ML UDC NG ×2 (21:10→22:17)
[2021-03-23 21:12] VITALS: BP 153/61; PULSE 61
[2021-03-23] MEDS: MELATONIN 3 MG TABLET NG (21:13)
[2021-03-23 22:00] VITALS: PULSE 84; RESP 14
[2021-03-24] MEDS: Acetaminophen 650 MG/20 ML UDC 1000 MG NG (05:18)
[2021-03-24] MEDS: Methocarbamol 500 MG Tablet NG (05:18)
[2021-03-24] MEDS: Pivot 1.5 Cal 1,000 ML BOTTLE 260 ML GT ×2 (05:23→10:19)
[2021-03-24 07:17] VITALS: BP 119/53; PULSE 75; RESP 16; TEMP 36.7; O2SAT 93
[2021-03-24 10:18] VITALS: BP 119/53; PULSE 75
[2021-03-24] MEDS: Metoprolol Tartrate 25 MG Tablet 12.5 MG NG (10:18)
[2021-03-24] MEDS: Allopurinol 100 MG Tablet 400 MG NG (10:19)
[2021-03-24] MEDS: amLODIPine 10 MG Tablet NG (10:19)
[2021-03-24] MEDS: Aspirin 81 MG TAB.CHEW NG (10:19)
[2021-03-24] MEDS: Gabapentin 100 MG Capsule PO (10:19)
[2021-03-24 10:38] VITALS: BP 119/53; PULSE 75; RESP 16; TEMP 36.7; O2SAT 93
--- NOTE | 2021-03-24 14:10 | NURSING ---
Discharged home with family. discharged instructions, medications, tube feedings and appointments reviewed with pt and family. denies question or concerns
== END 2021-03-24 12:57 | disposition home or self-care (01) | DRG 560 ==
PROVIDERS: Surgery; Admitting Provider Internal Medicine; PCP Internal Medicine; Visit Provider Internal Medicine
PROC: 0DJ08ZZ Inspection of Upper Intestinal Tract, Via Natural or Artificial Opening Endoscopic (ICD-10-PCS; CPT 43235; principal; 2021-03-13 12:55)
DX: S12.600D Unspecified displaced fracture of seventh cervical vertebra, subsequent encounter for fracture with routine healing (principal); Z43.1 Encounter for attention to gastrostomy; S01.81XD Laceration without foreign body of other part of head, subsequent encounter; S80.212D Abrasion, left knee, subsequent encounter; W19.XXXD Unspecified fall, subsequent encounter; E78.5 Hyperlipidemia, unspecified; I10 Essential (primary) hypertension; I25.10 Atherosclerotic heart disease of native coronary artery without angina pectoris; I25.5 Ischemic cardiomyopathy; E66.9 Obesity, unspecified; R13.13 Dysphagia, pharyngeal phase; R13.12 Dysphagia, oropharyngeal phase; I65.02 Occlusion and stenosis of left vertebral artery; M10.9 Gout, unspecified; Z79.899 Other long term (current) drug therapy; Z79.82 Long term (current) use of aspirin; Z98.1 Arthrodesis status; Z68.34 Body mass index [BMI] 34.0-34.9, adult; M75.21 Bicipital tendinitis, right shoulder; R09.89 Other specified symptoms and signs involving the circulatory and respiratory systems; D53.9 Nutritional anemia, unspecified
CPT/HCPCS: 36415; 74230; 80048; 80053; 83735; 84100; 84550; 85025; 85027; 92507; 92523; 92526; 92610; 92611; 97110; 97116; 97162; 97166; 97530; 97535; 97802; 97803; 99251; J7120; G0463; J2405

== ENCOUNTER 2021-04-20 11:00 | Outpatient (RCR) | payer MEDICARE, BC, SELFPAY ==
--- NOTE | 2021-04-01 12:21 | ST ---
[facility] Speech Pathology [address] [place] [address] Modified Barium Swallow Study MR#: [id number] Acct: [id number] Name: MITCHELL MOSS Rep #: [id number] : 1945 76 From: Vanessa Anne M.A., [facility] POST ORDER CLERK Modified Barium Swallow - Patient Information Study Date: 03/12/21 Study Time: 14:30 Direct Billable Minutes: 150 Total Minutes procedure & reportin Diagnosis: oropharyngeal dysphagia Referring Physician: Anitra Harden Reason for Referral: Objective reassessment of swallow function under fluoroscopy prior to diet advancement recommended following MBSS 03/02/21 Medical History: Patient is a 76 YO male w/ a past medical history significant for CAD, PCI with 3 stents present, ischemic CM (recent TTE showed a 65 % EF), HLD, obesity, gout, HTN and OA who fell on 02/24/21 in his garage and he struck his chin on a toolbox. Injuries sustained include a C7 superior endplate fracture, right C7 laminar fracture, C6-C7 vertebral widening, left vertebral artery occlusion and a deep complex submandibular laceration. He also lost teeth and has dental instability. He underwent emergency surgery on 02/25/21 for anterior cervical C6/7 partial corpectomy, arthrodesis, cadaveric fibular strut graft, posterior cervical C5, 6, T1, T2 instrumentation with posterolateral arthrodesis and reduction of fracture. The dentist recommended extraction of #7 and #8 teeth as an OP. Post operatively he had pharyngeal dysphagia, underwent a MBSS, was subsequently made NPO and a Dobhoff feeding tube was inserted. Current Diet Ordered: NPO w/ dobhoff feeding tube Dentition: Natural Teeth, Missing Teeth Mental Status: WNL Comment: Previous Modified Barium Swallow Studies: MBSS on 03/02/21 at [facility] -Moderate pharyngeal dysphagia secondary to Anterior cervical C6/7 partial corpectomy, arthrodesis, cadaveric fibular strut graft - findings were as follows: Pt. demonstrate adequate oral phase swallow Pt. moderate pharyngeal dysphagia exhibited by delayed initiation of pharyngeal swallow, decrease laryngeal elevation/anterior shift with limited epiglottic inversion further impacted by prevertebral edema. Penetration of thin liquids to TVF prior to initiation of pharyngeal swallow, however on repeat swallow SILENT aspiration to the inferior aspect of the TVF due to spillage over the interarytenoids. Mildly thick liquids resulted in deep penetration to the level of the TVF with post swallow residue within the valleculae and piriform space. Again spillage over the interarytenoids occurred which resulted in aspiration. Increase residue with moderately thick liquids with eventual silent penetration. Pt. cued to cough and cleared both aspiration and penetration of all liquids. Increased residue with puree, pt. utilized multiple swallows to aid in clearance, however post swallow residue remained within the valleculae and piriform space. This again flowed over the interarytenoid space into the laryngeal vestibule. Pt. at high risk for aspiration at this time mainly due to prevertebral edema, therefore NPO with limited ice chips was recommended. good, to achieve stated therapy goals. - Penetration-Aspiration Scale Penetration-Aspiration Scale: OBJECTIVE ASSESSMENT OF SWALLOW FUNCTION (QUANTITATIVE ? PER TRIAL): PENETRATION / ASPIRATION SCALE (WILLIAM): 1 = does not enter airway 2 = enters airway/above vocal folds/ejected 3 = enters airway/above vocal folds/not ejected 4 = enters airway/contacts vocal folds/ejected 5 = enters airway/contacts vocal folds/not ejected 6 = enters airway/below vocal folds/ejected 7 = enters airway/below vocal folds/not ejected despite effort 8 = enters airway/below vocal folds/no effort - Penetration-Aspiration Scale Score Thin Liquid via teaspoon Result: 8= enters airway/below vocal folds/no effort Thin Liquid via teaspoon Trial 2 Result: 3= enters airways/above vocal folds/not ejected [place] Thick Liquid via teaspoon Result: 1= does not enter airway - Pharyngeal residue from the initial bolus w/ additional swallow: 3= enters airway/above vocal folds/not ejected [place] Thick Liquid via teaspoon Trial 2 Result: 1= does not enter airway [place] Thick Liquid via small single sip from cup Result: 5= enters airways/contacts vocal folds/not ejected [place] Thick Liquid via teaspoon Trial 3 Result: 5= enters airways/contacts vocal folds/not ejected [place] Thick Liquid via teaspoon Result: 1= does not enter airway [place] Thick Liquid via teaspoon Trial 2 Result: 1= does not enter airway - Pharyngeal residue from the initial bolus w/ additional swallow: 3= enters airway/above vocal folds/not ejected [place] Thick Liquid via teaspoon Trial 3 Result: 1= does not enter airway - Pharyngeal residue from the initial bolus w/ additional swallow: 2= enters airway/above vocal folds/ejected [place] via teaspoon Result: 1= does not enter airway [place] Thick Liquid via teaspoon Trial 4 Result: 5= enters airways/contacts vocal folds/not ejected [place] Thick Liquid via teaspoon Trial 4 Result: 1= does not enter airway - Oral Phase Labial Seal: No Labial Escape Tongue Control During Bolus Hold: Cohesive bolus between tongue to palatal seal Bolus Preparation/Mastication: Timely and efficient chewing and mashing Bolus Transport/Lingual Motion: Repetitive/disorganized tongue motion Oral Residue: Trace residue lining oral structures - Pharyngeal Phase Initiation of Pharyngeal Swallow: Bolus head in valleculae Soft Palate Elevation: No bolus between soft palate and pharyngeal wall Laryngeal Elevation: Min superior movement thyroid cart/min apprx aryte cart-epig petiole Anterior Hyoid Excursion: Partial anterior movement Epiglottic Movement: Partial inversion Laryngeal Vestibule Closure at Height of Swallow: Incomplete; narrow column of air/contrast in laryngeal vestibule Pharyngeal Stripping Wave: Absent Pharyngoesophageal Segment Opening: Parital distension and partial duration; parital obstruction of flow Tongue Base Retraction: Narrow column of contrast between tongue base & post. pharyngeal wall Pharyngeal Residue: Majority of contrast within or on pharyngeal structures - Esophageal Phase Esophageal Clearance: Esophageal retention - Treatment Strategies Effects of treatment strategies attemped:: Multiple Swallows = somewhat effective Effortful Swallow = somewhat effective - Diagnosis/Impression Diagnosis: moderate oropharyngeal dysphagia (R13.12) Impression: Swallow function is marked by poor hyolaryngeal excursion contributing to incomplete epiglottic inversion and poor PES distention/duration. Dobhoff feeding tube was present for initial thin liquid trial by teaspoon which prevented epiglottic inversion and reduced airway closure w/ resultant in penetration/aspiration. Weak throat clearing response to aspirate was noted, but not sufficient to expel penetrated/aspirated contrast. Dobhoff feeding tube was removed per physician order w/ improved epiglottic inversion evident in subsequent trials, although still incomplete d/t pharyngeal edema s/p cervical surgery. Epiglottic inversion improved d/t the added weight w/ increased bolus viscosities. Significant pharyngal residue retention d/t incomplete epiglottic inversion and absent pharyngeal stripping wave/contraction. Multiple and effortful swallows were only somewhat effective to reduce pharyngeal residue, but resulted in increased laryngeal vestibule penetration of residue w/ subsequent swallows. - Recommendations Diet: NPO - Consideration for an alternative means of nutrition/hydration/medication is recommended. Would discourage reinsertion of dobhoff feeding tube d/t significant negative impact on swallow function and potential benefit from dysphagia intervention. Recommend Repeat Modified Barium Swallow: Yes - 2-4 weeks Need for Skilled Speech Therapy Services: Yes Comment: Recommend moderately thick liquid trials under direct ST supervision only w/ liquid presentation via teaspoon. Would benefit from implementation of the Márquez Free Water Protocol to facilitate increased swallowing opportunities. Must wait 60 minutes after PO trials w/ ST before free water intake is allowed. Initiate oropharyngeal strengthening exercises to target hyolaryngeal excursion, epiglottic inversion, PES opening and pharyngeal contraction. Education Completed: 1. Described result of evaluation., 2. Pt understands evaluation & agrees with goals and treatment plan. Comment: Images were reviewed and results/recommendations were discussed with the patient and referring physician immediately following MBS completion. The patient verbalized understanding and agreement with all recommendations and education provided. - Status Active ST Patient: Active - Contact Information [facility] Speech Therapy:: Vanessa Anne M.A., [employer] POST ORDER CLERK [place] [address] [place] [address] [phone] [email or web address]
--- NOTE | 2021-04-01 16:12 | HP.SP.AD ---
History - History Date of Eval: 03/27/21 Attending Doctor: Merrick Ojeda Referring Doctor: Dania Harden Reason for Referral: Oropharyngeal Dysphagia Medical Diagnosis (from RX): Oropharyngeal Dysphagia Previous speech therapy: Yes Results: Inpatient skilled speech therapy rx outpatient speech therapy following discharge for dysphagia management 2/2 Pt currently NPO w/ PEG tube in order to target continuation of oropharyngeal strengthening exercises focusing on hyolaryngeal excursion, epiglottic inversion, PES opening and pharyngeal contraction. Direct education provided re: instructed w/ Bam, Tracy, yawn, effortful swallow and breath hold + effortful swallow. Inpatient OUTSIDE MACHINIST HELPER noted cognitive changes w/ intermittent confusion persist s/p fall w/ subsequent trauma to head/neck/face. Extensive education completed w/ family re: role of OUTSIDE MACHINIST HELPER in dysphagia and cognitive function. Other Relevant Medical History/Diagnoses/Surgery: Patient is a 76yo Male who presented to [facility] on 03/06/21 s/p fall at home. Patient lives at home w/ . manages finances and patient is responsible for med management for which he uses a 2x/day pill box. Patient underwent CT head, face, cspine, CTA of neck, CXR, PXR, R shoulder plain films, revealing C7 superior endplate fx, R C7 laminar fx, C6-C7 vertebral widening. L vertebral artery occlusion, deep complex L submandibular laceration. 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 [employer] Assistive Devices: Glasses Patients Living Arrangements: With Family Patient Allergies - Allergies Allergies lisinopril Allergy (Verified 03/06/21 15:08) PT UNSURE OF REACTION atorvastatin Adverse Reaction (Intermediate, Verified 03/06/21 17:30) muscle pain Subjective Dysphagia - Symptoms Reported Symptoms/Problems with: Xerostomia, Hx of Aspiration - Current Diet Liquids Márquez free water Protocol: Yes - NPO NPO - Alternative Nutrition Method: Gastrostomy Tube Date Tube Placed: 03/13/21 Objective Dysphagia - NPO NPO: Trials with OUTSIDE MACHINIST HELPER Only - Results Swallowing Within Normal Limits: No Swallowing Diagnosis: Oropharyngeal Phase Dysphagia Severity: Severe Modified Barium Results Hx MBS Report Entered: Yes MBS Results (from prior exam): 04/01/21 12:21 Speech Therapy by Jia Limon [facility] [address] [place] [address] Modified Barium Swallow Study MR#: [id number] Acct: [id number] Name: MITCHELL MOSS Rep #: [id number] : 1945 76 From: Vanessa Anne M.A., [facility]-OUTSIDE MACHINIST HELPER Modified Barium Swallow - Patient Information Study Date: 03/12/21 Study Time: 14:30 Direct Billable Minutes: 150 Total Minutes procedure & reportin Diagnosis: oropharyngeal dysphagia Referring Physician: Anitra Harden Reason for Referral: Objective reassessment of swallow function under fluoroscopy prior to diet advancement recommended following MBSS 03/02/21 Medical History: Patient is a 76 YO male w/ a past medical history significant for CAD, PCI with 3 stents present, ischemic CM (recent TTE showed a 65 % EF), HLD, obesity, gout, HTN and OA who fell on 02/24/21 in his garage and he struck his chin on a toolbox. Injuries sustained include a C7 superior endplate fracture, right C7 laminar fracture, C6-C7 vertebral widening, left vertebral artery occlusion and a deep complex submandibular laceration. He also lost teeth and has dental instability. He underwent emergency surgery on 02/25/21 for anterior cervical C6/7 partial corpectomy, arthrodesis, cadaveric fibular strut graft, posterior cervical C5, 6, T1, T2 instrumentation with posterolateral arthrodesis and reduction of fracture. The dentist recommended extraction of #7 and #8 teeth as an OP. Post operatively he had pharyngeal dysphagia, underwent a MBSS, was subsequently made NPO and a Dobhoff feeding tube was inserted. Current Diet Ordered: NPO w/ dobhoff feeding tube Dentition: Natural Teeth, Missing Teeth Mental Status: WNL Comment: Previous Modified Barium Swallow Studies: MBSS on 03/02/21 at [facility] -Moderate pharyngeal dysphagia secondary to Anterior cervical C6/7 partial corpectomy, arthrodesis, cadaveric fibular strut graft - findings were as follows: Pt. demonstrate adequate oral phase swallow Pt. moderate pharyngeal dysphagia exhibited by delayed initiation of pharyngeal swallow, decrease laryngeal elevation/anterior shift with limited epiglottic inversion further impacted by prevertebral edema. Penetration of thin liquids to TVF prior to initiation of pharyngeal swallow, however on repeat swallow SILENT aspiration to the inferior aspect of the TVF due to spillage over the interarytenoids. Mildly thick liquids resulted in deep penetration to the level of the TVF with post swallow residue within the valleculae and piriform space. Again spillage over the interarytenoids occurred which resulted in aspiration. Increase residue with moderately thick liquids with eventual silent penetration. Pt. cued to cough and cleared both aspiration and penetration of all liquids. Increased residue with puree, pt. utilized multiple swallows to aid in clearance, however post swallow residue remained within the valleculae and piriform space. This again flowed over the interarytenoid space into the laryngeal vestibule. Pt. at high risk for aspiration at this time mainly due to prevertebral edema, therefore NPO with limited ice chips was recommended. good, to achieve stated therapy goals. - Penetration-Aspiration Scale Penetration-Aspiration Scale: OBJECTIVE ASSESSMENT OF SWALLOW FUNCTION (QUANTITATIVE ? PER TRIAL): PENETRATION / ASPIRATION SCALE (WILLIAM): 1 = does not enter airway 2 = enters airway/above vocal folds/ejected 3 = enters airway/above vocal folds/not ejected 4 = enters airway/contacts vocal folds/ejected 5 = enters airway/contacts vocal folds/not ejected 6 = enters airway/below vocal folds/ejected 7 = enters airway/below vocal folds/not ejected despite effort 8 = enters airway/below vocal folds/no effort - Penetration-Aspiration Scale Score Thin Liquid via teaspoon Result: 8= enters airway/below vocal folds/no effort Thin Liquid via teaspoon Trial 2 Result: 3= enters airways/above vocal folds/not ejected Dulce Thick Liquid via teaspoon Result: 1= does not enter airway - Pharyngeal residue from the initial bolus w/ additional swallow: 3= enters airway/above vocal folds/not ejected Dulce Thick Liquid via teaspoon Trial 2 Result: 1= does not enter airway Dulce Thick Liquid via small single sip from cup Result: 5= enters airways/contacts vocal folds/not ejected Dulce Thick Liquid via teaspoon Trial 3 Result: 5= enters airways/contacts vocal folds/not ejected Honey Thick Liquid via teaspoon Result: 1= does not enter airway Honey Thick Liquid via teaspoon Trial 2 Result: 1= does not enter airway - Pharyngeal residue from the initial bolus w/ additional swallow: 3= enters airway/above vocal folds/not ejected Honey Thick Liquid via teaspoon Trial 3 Result: 1= does not enter airway - Pharyngeal residue from the initial bolus w/ additional swallow: 2= enters airway/above vocal folds/ejected Pudding via teaspoon Result: 1= does not enter airway Dulce Thick Liquid via teaspoon Trial 4 Result: 5= enters airways/contacts vocal folds/not ejected Honey Thick Liquid via teaspoon Trial 4 Result: 1= does not enter airway - Oral Phase Labial Seal: No Labial Escape Tongue Control During Bolus Hold: Cohesive bolus between tongue to palatal seal Bolus Preparation/Mastication: Timely and efficient chewing and mashing Bolus Transport/Lingual Motion: Repetitive/disorganized tongue motion Oral Residue: Trace residue lining oral structures - Pharyngeal Phase Initiation of Pharyngeal Swallow: Bolus head in valleculae Soft Palate Elevation: No bolus between soft palate and pharyngeal wall Laryngeal Elevation: Min superior movement thyroid cart/min apprx aryte cart-epig petiole Anterior Hyoid Excursion: Partial anterior movement Epiglottic Movement: Partial inversion Laryngeal Vestibule Closure at Height of Swallow: Incomplete; narrow column of air/contrast in laryngeal vestibule Pharyngeal Stripping Wave: Absent Pharyngoesophageal Segment Opening: Parital distension and partial duration; parital obstruction of flow Tongue Base Retraction: Narrow column of contrast between tongue base & post. pharyngeal wall Pharyngeal Residue: Majority of contrast within or on pharyngeal structures - Esophageal Phase Esophageal Clearance: Esophageal retention - Treatment Strategies Effects of treatment strategies attemped:: Multiple Swallows = somewhat effective Effortful Swallow = somewhat effective - Diagnosis/Impression Diagnosis: moderate oropharyngeal dysphagia (R13.12) Impression: Swallow function is marked by poor hyolaryngeal excursion contributing to incomplete epiglottic inversion and poor PES distention/duration. Dobhoff feeding tube was present for initial thin liquid trial by teaspoon which prevented epiglottic inversion and reduced airway closure w/ resultant in penetration/aspiration. Weak throat clearing response to aspirate was noted, but not sufficient to expel penetrated/aspirated contrast. Dobhoff feeding tube was removed per physician order w/ improved epiglottic inversion evident in subsequent trials, although still incomplete d/t pharyngeal edema s/p cervical surgery. Epiglottic inversion improved d/t the added weight w/ increased bolus viscosities. Significant pharyngal residue retention d/t incomplete epiglottic inversion and absent pharyngeal stripping wave/contraction. Multiple and effortful swallows were only somewhat effective to reduce pharyngeal residue, but resulted in increased laryngeal vestibule penetration of residue w/ subsequent swallows. - Recommendations Diet: NPO - Consideration for an alternative means of nutrition/hydration/medication is recommended. Would discourage reinsertion of dobhoff feeding tube d/t significant negative impact on swallow function and potential benefit from dysphagia intervention. Recommend Repeat Modified Barium Swallow: Yes - 2-4 weeks Need for Skilled Speech Therapy Services: Yes Comment: Recommend moderately thick liquid trials under direct ST supervision only w/ liquid presentation via teaspoon. Would benefit from implementation of the Márquez Free Water Protocol to facilitate increased swallowing opportunities. Must wait 60 minutes after PO trials w/ ST before free water intake is allowed. Initiate oropharyngeal strengthening exercises to target hyolaryngeal excursion, epiglottic inversion, PES opening and pharyngeal contraction. Education Completed: 1. Described result of evaluation., 2. Pt understands evaluation & agrees with goals and treatment plan. Comment: Images were reviewed and results/recommendations were discussed with the patient and referring physician immediately following MBS completion. The patient verbalized understanding and agreement with all recommendations and education provided. - Status Active ST Patient: Active - Contact Information [facility] Speech Therapy:: Vanessa Anne M.A., [facility]-OUTSIDE MACHINIST HELPER [facility] [address] [place] [address] x [phone] [email or web address] Initialized on 04/01/21 12:21 - END OF NOTE Dysphagia Assessment - Swallowing Impairment Contributing Factors to Swallowing Impairment: Delayed Swallow Initiation, Reduced Laryngeal Excursion - Recommendations Modified Barium Swallow/Cookie Swallow Recommended: Yes Swallowing Treatment: Yes - Diet Texture Recommendations Solids Other: Other Other Solid: Therapeutic trials w/OUTSIDE MACHINIST HELPER Liquids: Therapeutic trials w/OUTSIDE MACHINIST HELPER Márquez free water Protocol: Yes NPO: Alternative Nutrition/Hydration Recommended - Safety Saftey Precautions/Swallowing Recommendations (Check all that Apply): To be Fed Only by OUTSIDE MACHINIST HELPER, Upright Position at Least 30 Minutes After Meals Objective Cog/Ling/Com - Test Administered Vjkofbyae-Emmvkdyovg-Glntpqwtrblnj Assessment Administered: Yes Borhwympk-Mkcjxixakr-Lqlqwksscfawo Assessment: Cognitive ? Linguistic skills were evaluated using patient/family interview, skilled observation and informal evaluation through tasks completed by the patient. - Orientation Orientation: Person, Place, Medical Diagnosis - Answer Yes/No Questions Simple: WNL Complex: WNL - Recall Percent recall of conversational details: 60% Comments: Pt participated in complex conversation w/OUTSIDE MACHINIST HELPER re: current swallowing functioning w/approximately 60% acc in recall of information and benefited from mod-max verbal and logical cues to improve recall of conversation details. Other Impressions - Comments Dysphagia Education -: Given Pt's recent discharge from [facility] at [facility] and recent MBSS, Pt's initial evaluation consisted of extensive Pt and Pt Caregiver (daughter) education re: expectations w/dysphagia, Pt's MBSS results from 03/12/21, desire to schedule follow-up MBSS. Pt expressed desire to do as much as he could at home and during therapy to improve overall swallowing function so that he could eat following the follow-up MBSS. OUTSIDE MACHINIST HELPER provided education re: that therapy and therapeutic trials w/OUTSIDE MACHINIST HELPER can help improve strength however could not guarantee significant results of next MBSS - Pt expressed understanding and benefited from mod repetition of expectations. During review of images from MBSS, education provided re: anatomy and physiology of swallow function and Pt's increased risk of aspiration w/ food/drink which led to PEG tube decision. Pt reported seeing the images helped him understand the magnitude of situation and expressed appreciation for description. Suspect cont'd education is warranted re: MBSS results as well as adherence to the FFWP. Handout provided along w/education re: FFWP w/ Pt providing teach back of education following min-mod repetition. Plan - Plan Plan: Will rx Pt for skilled outpatient tx to address deficits in oropharyngeal dysphagia and cognition. Pt would benefit from training in memory strategies as well as training and education re: current dysphagia diet, process of thickening liquids, therapeutic PO trials w/ clinician, and swallowing exercises to aid in oropharyngeal strengthening. Without skilled intervention, Pt is at risk for decreased independence completing daily tasks and consuming a restrictive diet putting him at risk for aspiration pneumonia and atrophy of laryngeal musculature. - Recommendations MBS: Yes Treatment Warranted: Yes - Frequency Frequency: 3x /Week Duration: 2 Months Visits in this POC: 24 - Prognosis Prognosis: Good - Goals that are Established: Determination:: Goals will be added/modified as deemed necessary and appropriate. Therapy will be discontinued when results of re-evaluation indicate therapy is no longer needed or lack of progress has been documented. - Goal #1-5 Goal #1: Pt will participate in Modified Barium Swallow Study (MBSS) to objectively assess Pt's oropharyngeal swallow function to determine the least restrictive means of nutrition and progress from participating in pharyngeal strengthening exercises. Goal #2: Pt will complete pharyngeal strengthening and laryngeal elevation exercises (Bam, Shaker, Tracy, Effortful Swallow) with no cues for >10 reps 4x/day. Goal #3: Pt will tolerate least restrictive diet and therapeutic trials w/OUTSIDE MACHINIST HELPER w/no overt s/s of aspiration/penetration via clinical or instrumental assessment to aid in safe consumption of solids/liquids independently. Goal #4: Pt will complete basic to mod complex immediate, short-term, and working memory tasks with 90% acc given min cues across 3 measured opportunities. Education - Patient has Indicated that the Following Identified Educational Needs: None The Patient has indicated that they have no educational or learning abilities that may effect their care.: Yes - Patient Instruction Patient Education: Diagnosis, Treatment Plan, Goals, Safety Precautions, Diet Level, Home Exercise Program Person Taught: Patient, Family Teaching Method: Discussion, Demonstration Response to teaching: Return demonstration, Verbalize understanding
--- NOTE | 2021-05-01 13:02 | HP.SP.DC_ITS ---
ST Discharge Summary - Discharged: Discharge: MITCHELL MOSS is a 76 yo male who was seen for initial speech therapy evaluation at [facility] on 03/27/21 s/p post-operative pharyngeal dysphagia. Pt underwent a MBSS on 03/02/21, was subsequently made NPO and a Dobhoff feeding tube was inserted. 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 Pt rx to attend outpatient therapy to address pharyngeal deficits. Following initial evaluation, Pt attended 9 sessions to target oropharyngeal strengthening, PO trials of moderately thickened liquids, and continued education re: FFWP and results of previous MB SS. Pt remained NPO w/PEGtube throughout outpatient visits 2/2 severity of pharyngeal deficits on previous MBSS. Pt participated in follow up MBSS on 04/23/21 rx Pt to upgrade to easy to chew solids (IDDSI Level 7) and thin liquids (IDDSI Level 0) while adhering to the following compensatory strategies: Small Bites, SMALL Sips, Slow Rate, Alternate bites/solids and sips/liquids ? EFFORTFUL SWALLOW, Sitting upright, Remain sitting upright for 30 minutes after PO intake. At the time, outpatient therapy was recommended for cont?d education re: new diet and safe swallowing strategies and aspiration precautions; however, Pt wishing to not continue w/speech therapy. Pt d/c from speech therapy on this date, 05/01/21, at Pt?s request. Thank you for allowing me to participate in the care of your Pt. Will reevaluate at Pt?s request following script from physician.
== END 2021-04-20 19:00 | disposition home or self-care (01) ==
LOC: SP 11:00
PROVIDERS: PCP Preventive Medicine Occupational Medicine; Referring Provider Internal Medicine; Visit Provider Preventive Medicine Occupational Medicine
DX: M43.20 Fusion of spine, site unspecified (principal); R13.12 Dysphagia, oropharyngeal phase
CPT/HCPCS: 92507; 92523; 92526; 92610

== ENCOUNTER → 2021-04-23 13:12 | Outpatient (CLI) | payer MEDICARE, BC, SELFPAY ==
--- NOTE | 2021-04-23 14:31 | ST.MBS ---
Modified Barium Swallow - Patient Information Study Date: 04/23/21 Study Time: 13:30 Direct Billable Minutes: 130 Total Minutes procedure & reportin Diagnosis: Oropharyngeal Dysphagia Referring Physician: Merrick Ojeda Reason for Referral: NPO, PEGtube, Dysphagia Medical History: Patient is a 76 YO male w/ a past medical history significant for CAD, PCI with 3 stents present, ischemic CM (recent TTE showed a 65 % EF), HLD, obesity, gout, HTN and OA who fell on 02/24/21 in his garage and he struck his chin on a toolbox. Injuries sustained include a C7 superior endplate fracture, right C7 laminar fracture, C6-C7 vertebral widening, left vertebral artery occlusion and a deep complex submandibular laceration. He also lost teeth and has dental instability. He underwent emergency surgery on 02/25/21 for anterior cervical C6/7 partial corpectomy, arthrodesis, cadaveric fibular strut graft, posterior cervical C5, 6, T1, T2 instrumentation with posterolateral arthrodesis and reduction of fracture. The dentist recommended extraction of #7 and #8 teeth as an OP. Post operatively he had pharyngeal dysphagia, underwent a MBSS on 03/02/21, was subsequently made NPO and a Dobhoff feeding tube was inserted. Pt participated in repeat MBSS on 03/12/21, where NPO was recommended w/alternative adjunct faculty for medical terminology nutrition via insertion of PEGtube. Current Diet Ordered: NPO Dentition: Natural Teeth, Missing Teeth Respiratory Status: Oxygenating on Room Air - Penetration-Aspiration Scale Penetration-Aspiration Scale: OBJECTIVE ASSESSMENT OF SWALLOW FUNCTION (QUANTITATIVE ? PER TRIAL): PENETRATION / ASPIRATION SCALE (WILLIAM): 1 = does not enter airway 2 = enters airway/above vocal folds/ejected 3 = enters airway/above vocal folds/not ejected 4 = enters airway/contacts vocal folds/ejected 5 = enters airway/contacts vocal folds/not ejected 6 = enters airway/below vocal folds/ejected 7 = enters airway/below vocal folds/not ejected despite effort 8 = enters airway/below vocal folds/no effort VIDEOFLOROSCOPIC SCALE SCORE (WILLIAM): Grade I = aspiration of material that has penetrated into the laryngeal vestibule, intact cough reflex Grade II = aspiration < 10 % of the bolus, intact cough reflex Grade III = aspiration of < 10 % of the bolus, reduced cough reflex or aspiration of > 10 % of the bolus, intact cough reflex Grade IV = aspiration of > 10 % of the bolus, reduced cough reflex - Penetration-Aspiration Scale Score Thin Liquid via teaspoon w/oral hold Result: 1= does not enter airway Thin Liquid via teaspoon Result: 1= does not enter airway Thin Liquid via small single sip from cup Result: 1= does not enter airway Thin Liquid via sequential sips from cup Result: 1= does not enter airway Thin Liquid via large single sip from straw Result: 3= enters airways/above vocal folds/not ejected Thin Liquid via small single sip from straw Result: 1= does not enter airway [employer] Thick Liquid via small single sip from cup Result: 1= does not enter airway - increased pharyngeal residue Honey Thick Liquid via small single sip from cup Result: 1= does not enter airway - increased pharyngeal residue Pudding via teaspoon Result: 1= does not enter airway Cookie Result: 1= does not enter airway Thin Liquid via small single sip from cup Effortful swallow Result: 1= does not enter airway - Strategy effective in reducing amount of pharyngeal residue - Oral Phase Labial Seal: No Labial Escape Tongue Control During Bolus Hold: Cohesive bolus between tongue to palatal seal Bolus Preparation/Mastication: Timely and efficient chewing and mashing Bolus Transport/Lingual Motion: Slowed tongue motion Oral Residue: Residue collection on oral structures - Pharyngeal Phase Initiation of Pharyngeal Swallow: Bolus head in valleculae Soft Palate Elevation: No bolus between soft palate and pharyngeal wall Laryngeal Elevation: Min superior movement thyroid cart/min apprx aryte cart-epig petiole Anterior Hyoid Excursion: Partial anterior movement Epiglottic Movement: Partial inversion - tip of epiglottis resting against posterior pharyngeal wall, causing vallecular residue retention Laryngeal Vestibule Closure at Height of Swallow: Incomplete; narrow column of air/contrast in laryngeal vestibule - 1x on sequential cup sips w/thin liquids; otherwise complete closure Pharyngeal Stripping Wave: Present - diminished - stripping appears to diminish at level of vallecula Pharyngoesophageal Segment Opening: Parital distension and partial duration; parital obstruction of flow - narrow distention w/significantly reduced duration of opening Tongue Base Retraction: Narrow column of contrast between tongue base & post. pharyngeal wall Pharyngeal Residue: Collection of residue within or on pharyngeal structures - increased residue at level of vallecula and lining of aryepiglottic folds and at the pyriforms - Esophageal Phase Esophageal Clearance: Complete clearance - Treatment Strategies Effects of treatment strategies attemped:: Effortful swallow = EFFECTIVE W/SMALL BOLUS Double swallow = EFFECTIVE Reduced bolus size = EFFECTIVE - Diagnosis/Impression Diagnosis: Mild-Mod Oropharyngeal Dysphagia Impression: Pt?s oral phase is primarily marked by slowed tongue movement/strength resulting in minimal oral residue which was typically cleared following a second swallow or thin liquid rinse. The pharyngeal phase of Pt?s swallow is primarily marked by reduced hyolaryngeal elevation and anterior hyoid excursion resulting in partial epiglottic inversion and reduced distention and duration of PES opening. Epiglottic inversion improves w/higher bolus viscosities, however this increased pharyngeal residue. Pt additionally presents w/reduced strength w/tongue base retraction and pharyngeal stripping wave resulting in collection of pharyngeal residues in the vallecula, lining the aryepiglottic folds, and pyriform sinuses. Pt benefited from reduction in bolus size and implementing effortful swallow to reduce overall pharyngeal residue. Pt independent in implementing second swallow to clear residue. The esophageal phase was unremarkable as no esophageal retention was observed during screen. - Recommendations Diet: Mechanical Soft Textures, Thin Liquids Comment: Easy to Chew Solids w/Thin liquids Compensatory Strategies: Small Bites, Small Sips, Slow Rate, Alternate bites/solids and sips/liquids - Effortful Swallow, Sitting upright, Remain sitting upright for 30 minutes after PO intake Recommend Repeat Modified Barium Swallow: TBD Need for Skilled Speech Therapy Services: Yes - Continue w/outpatient speech therapy Comment: Patient requires intensive skilled speech-language intervention targeting: education re: new diet recommendations training and implementation of recommended compensatory strategies detailed above to reduce aspiration risk training and implementation of recommended oropharyngeal strengthening exercises to facilitate improved pharyngeal motility w/hyolaryngeal elevation and excursion, tongue base retraction, and PES distention and duration (Bam, Tracy, Shaker, Effortful Swallows) Education Completed: 1. Described result of evaluation., 2. Pt understands evaluation & agrees with goals and treatment plan., 4. Family/caregivers understand evaluation & agree w/ goals & tx plan., 7. Pt requires further education on strategies & risks., 8. Family/caregivers require further education on strategies & risks. - Status Active ST Patient: Active
== END ==
PROVIDERS: PCP Preventive Medicine Occupational Medicine; Referring Provider Preventive Medicine Occupational Medicine; Visit Provider Preventive Medicine Occupational Medicine
DX: R13.12 Dysphagia, oropharyngeal phase (principal)
CPT/HCPCS: 74230; 92611